=== PATIENT | female | born 1955 | race Caucasian/White ===

== ENCOUNTER 2023-10-27 01:19 | Day surgery (SDC) | payer MEDICARE, SELFPAY ==
[2023-10-01 13:06] VITALS: BMI 22.2
--- NOTE | 2023-10-25 12:08 | SUR.PREOP ---
Patient called regarding upcoming procedure. Reviewed preop instructions, appointment times, and procedure prep.
--- NOTE | 2023-10-26 16:26 | PM.HPGS ---
History of Present Illness History of Present Illness Consent: Risks, benefits, and alternatives have been discussed and questions answered. Patient agrees to proceed with procedure. Chief complaint: hx colon polyps Narrative: Jessica Phillips is a 67 year old female Was referred for colon cancer screening. She has had 3 previous colonoscopies with removal of polyps. Review of Systems Review of Systems: All systems reviewed & are unremarkable except as noted in HPI and below PMFSH Social History Social History Smoking status: Former smoker Smoking end date: 09/20/03 Alcohol intake: current Drinks per week: 1 Living arrangements: with family Spiritual care concerns: No Meds Home Medications and Allergies Home Medications Medication Instructions Recorded Confirmed Type Caltrate 600 plus D PO DAILY 10/01/23 History Prolia subcut 10/01/23 History cholecalciferol (vitamin D3) 50 PO DAILY 10/01/23 History mcg (2,000 unit) tablet (Vitamin D3) levothyroxine BID 10/01/23 History nlhpadht-jprd-[id number] 8 mg-folic 400 tablet PO 10/01/23 History mcg-K 50 mcg-lutein 300 mcg tablet (Centrum Silver Women) psyllium husk 3.4 gram/5.4 gram PO 10/01/23 History oral powder (Metamucil) simvastatin 20 mg tablet 20 mg PO DAILY 10/01/23 10/01/23 History Allergies Allergy/AdvReac Type Severity Reaction Status Date / Time codeine Allergy Unknown Dyspnea / Verified 10/27/23 09:18 SOB morphine Allergy Unknown Nausea and Verified 10/27/23 09:18 Vomiting Exam Resp: Auscultation: clear to auscultation bilaterally Cardio: Rate: regular rate Rhythm: regular rhythm GI: GI Palp: Yes Soft to palpation and No Tenderness to palpation present (GI) Assessment and Plan Assessment and plan (1) Colon cancer screening: Code(s): Z12.11 - Encounter for screening for malignant neoplasm of colon Status: Acute Assessment and Plan: Colonoscopy with possible biopsy or polypectomy or cautery or injection of substances.
[2023-10-27 09:18] VITALS: BP 119/35; PULSE 89; RESP 18; TEMP 36.8; O2SAT 100
[2023-10-27] MEDS: LACTATED RINGERS 1,000 ML 150 ML IV CONT (09:35)
--- NOTE | 2023-10-27 10:05 | P.PNAN_ITS ---
Anes - Initial Pre Proc Eval Procedure: Operation Date: 10/27/23 10:30 Proposed Procedures p Colonoscopy - Alexis Morales MD Date/Time: 10/27/23 10:05 Surgeon: Alexis Morales MD Pre Op Diagnosis: hx colon polyps Patient Data Age: 67 Gender: F Height: 1.5 m Weight: 48.8 kg Last Vital Signs Temp 98.3 F 10/27/23 09:18 Pulse 89 10/27/23 09:18 Resp 18 10/27/23 09:18 BP 119/35 L 10/27/23 09:18 Pulse Ox 100 10/27/23 09:18 O2 Del Method Room Air 10/27/23 09:18 Allergies Allergy/AdvReac Type Severity Reaction Status Date / Time codeine Allergy Unknown Dyspnea / Verified 10/27/23 09:18 SOB morphine Allergy Unknown Nausea and Verified 10/27/23 09:18 Vomiting Home Medications Medication Instructions Recorded Confirmed Type Caltrate 600 plus D PO DAILY 10/01/23 History Prolia subcut 10/01/23 History cholecalciferol (vitamin D3) 50 PO DAILY 10/01/23 History mcg (2,000 unit) tablet (Vitamin D3) levothyroxine BID 10/01/23 History jswzbmhk-mwrv-tlfh 8 mg-folic 400 tablet PO 10/01/23 History mcg-K 50 mcg-lutein 300 mcg tablet (Centrum Silver Women) psyllium husk 3.4 gram/5.4 gram PO 10/01/23 History oral powder (Metamucil) simvastatin 20 mg tablet 20 mg PO DAILY 10/01/23 10/01/23 History Patient hx anesthesia problems: none Family hx anesthesia problems: none Results Review: All pre-operative results and documents have been reviewed as part of the pre- operative evaluation. COUNT INCLUDES THE [facility] Social History Social History Smoking status: Former smoker Smoking end date: 09/20/03 Alcohol intake: current Drinks per week: 1 Living arrangements: with family Spiritual care concerns: No Anes - Eval Final PreProcedure Day of Procedure 10/27/23 10:05 Patient weight: normal Heart: regular rate and rhythm Lungs: clear to auscultation Airway: Mallampati scale Neurological: alert and oriented Last oral intake: >/= 8 hours Emergent: no Anesthetic plan: proceed Anesthesia type and monitoring: general GIVS and standard monitoring Results Review: All pre-operative results and documents have been reviewed as part of the pre- operative evaluation. Informed Consent: The patient's anesthetic plan and its attendant risks and benefits were discussed with the patient/family/POA. Questions were solicited and answers provided to the satisfaction of the patient/family/POA.
[2023-10-27 11:06] VITALS: BP 123/98; PULSE 82; RESP 18; O2SAT 99
[2023-10-27 11:16] VITALS: BP 107/39; PULSE 75; RESP 18; O2SAT 100
[2023-10-27 11:26] VITALS: BP 106/37; PULSE 72; RESP 18; O2SAT 100
== END 2023-10-27 11:35 | disposition home or self-care (01) ==
PROVIDERS: PCP Internal Medicine; Visit Provider Internal Medicine Gastroenterology
PROC: 0DJD8ZZ Inspection of Lower Intestinal Tract, Via Natural or Artificial Opening Endoscopic (ICD-10-PCS; CPT 45378; principal; 2023-10-27 10:30)
DX: Z12.11 Encounter for screening for malignant neoplasm of colon (principal); K62.1 Rectal polyp; K57.30 Diverticulosis of large intestine without perforation or abscess without bleeding; Z87.891 Personal history of nicotine dependence
CPT/HCPCS: 45380; 88305; J2704; J7120

== ENCOUNTER 2024-03-27 14:22 | Emergency (ER) | payer MEDICARE, SELFPAY ==
[2024-03-27 14:34] VITALS: BP 133/66; PULSE 66; RESP 16; TEMP 36.8; O2SAT 97
--- NOTE | 2024-03-27 15:01 | ED.EYEPROB ---
HPI - Eye Problem General Chief complaint: Eye Problems Stated complaint: right eye red,discharge Time Seen by Provider: 03/27/24 15:01 Source: patient Mode of arrival: ambulatory Limitations: no limitations History of Present Illness HPI Narrative: 68-year-old female presents with complaint 68-year-old female presents with complaint of redness, yellow drainage to right eye starting yesterday. Reports that symptoms are getting progressively worse. Right eye crusted shut this morning. No vision changes. all systems reviewed and negative except as noted above. Related Data Home Medications Medication Instructions Recorded Confirmed cholecalciferol (vitamin D3) 50 2,000 unit PO WEEKLY 10/01/23 03/27/24 mcg (2,000 unit) tablet (Vitamin D3) udtmyyrt-phns-hxvs 8 mg-folic 400 1 tablet PO DAILY 10/01/23 03/27/24 mcg-K 50 mcg-lutein 300 mcg tablet (Centrum Silver Women) simvastatin 20 mg tablet 20 mg PO DAILY 10/01/23 03/27/24 denosumab 60 mg/mL subcutaneous 60 mg subcut [id number] 03/27/24 03/27/24 syringe (Prolia) levothyroxine 75 mcg tablet 75 mcg PO DAILY 03/27/24 03/27/24 Allergies Allergy/AdvReac Type Severity Reaction Status Date / Time codeine Allergy Unknown Dyspnea / Verified 03/27/24 14:42 SOB morphine Allergy Unknown Nausea and Verified 03/27/24 14:42 Vomiting Review of Systems Review of Systems: CONSTITUTIONAL: Denies fever, chills, or sweats. EYES: Denies visual changes . Reports right eye redness, discharge. ENT: Denies rhinorrhea, congestion, sore throat, or otalgia. CARDIOVASCULAR: Denies chest pain, palpitations, or edema. RESPIRATORY: Denies cough or dyspnea. GASTROINTESTINAL: Denies abdominal pain, nausea, vomiting, or diarrhea. GENITOURINARY: Denies dysuria or hematuria. SKIN: Denies rash or itching. MUSCULOSKELETAL: Denies back pain, joint pain, or myalgia. NEUROLOGIC: Denies headache, numbness, or weakness. PSYCHIATRIC: Denies anxiety or depression. All other systems reviewed are negative, except as documented in HPI. [facility] Social History Social History Smoking status: Former smoker Smoking end date: 09/20/03 Alcohol intake: current Drinks per week: 1 Living arrangements: with family Spiritual care concerns: No Comments At time of signature, agree with nursing past medical, surgical, social and family history. There is no relevant family history pertinent to the presenting complaint. Exam Narrative: GENERAL: This is a well-nourished, well-developed patient, in no apparent distress. HEAD: normocephalic, atraumatic. EYES: PERRL. Sclera and conjunctiva right eye erythematous, yellow purulent drainage. Left eye sclera and conjunctiva clear/white. Vision is grossly intact. EARS: External ears normal NOSE: External nose normal NECK: Neck supple, non-tender without lymphadenopathy, masses or thyromegaly. CARDIOVASCULAR: Regular rate and rhythm without murmurs, gallops, or rubs. RESPIRATORY: Clear to auscultation. Breath sounds equal bilaterally. No wheezes, rales, or rhonchi. SKIN: warm, Dry, intact with no suspicious lesions or rash, good texture and turgor. NEURO: awake, alert, and oriented to person, place and time. There were no obvious focal neurologic abnormalities. EXTREMITIES: No joint tenderness, effusion, or edema noted. Course Course Level of Care: Express Care Visit Vital Signs Vital signs: Vital Signs Temperature 36.8 C 03/27/24 14:34 Pulse Rate 03/27/24 14:34 Respiratory Rate 03/27/24 14:34 Blood Pressure 133/66 03/27/24 14:34 Pulse Oximetry 97 03/27/24 14:34 Oxygen Delivery Room Air 03/27/24 14:34 Temperature 36.8 C 03/27/24 14:34 Pulse Rate 03/27/24 14:34 Respiratory Rate 03/27/24 14:34 Blood Pressure 133/66 03/27/24 14:34 Pulse Oximetry 97 03/27/24 14:34 Oxygen Delivery Room Air 03/27/24 14:34 rev
== END 2024-03-27 15:12 | disposition home or self-care (01) ==
PROVIDERS: Emergency Provider Nurse Practitioner Family; PCP Internal Medicine
DX: H10.31 Unspecified acute conjunctivitis, right eye (principal); Z87.891 Personal history of nicotine dependence; M81.0 Age-related osteoporosis without current pathological fracture; E04.9 Nontoxic goiter, unspecified
CPT/HCPCS: 99213; G0463

== ENCOUNTER 2024-06-17 14:54 | Emergency (ER) | payer MEDICARE, SELFPAY ==
--- NOTE | 2024-06-17 15:06 | ED.URI ---
HPI - URI/Sore Throat General Stated Complaint: ALMEIDA,COVID exposure Time Seen by Provider: 06/17/24 15:25 Source: patient Mode of arrival: ambulatory Limitations: no limitations History of Present Illness HPI Narrative: Jessica is a 60-year-old female patient presenting to the clinic today with complaints of headache and some nasal congestion that started this morning. She has had positive COVID exposure. She denies any chest pain, fever, shortness breath, chills, body aches, or sore throat. Related Data Home Medications Medication Instructions Recorded Confirmed cholecalciferol (vitamin D3) 50 2,000 unit PO WEEKLY 10/01/23 03/27/24 mcg (2,000 unit) tablet (Vitamin D3) [id number]-nwnx-[id number] 8 mg-folic 400 1 tablet PO DAILY 10/01/23 03/27/24 mcg-K 50 mcg-lutein 300 mcg tablet (Centrum Silver Women) simvastatin 20 mg tablet 20 mg PO DAILY 10/01/23 03/27/24 denosumab 60 mg/mL subcutaneous 60 mg subcut [id number] 03/27/24 03/27/24 syringe (Prolia) levothyroxine 75 mcg tablet 75 mcg PO DAILY 03/27/24 03/27/24 Allergies Allergy/AdvReac Type Severity Reaction Status Date / Time codeine Allergy Unknown Dyspnea / Verified 03/27/24 14:42 SOB morphine Allergy Unknown Nausea and Verified 03/27/24 14:42 Vomiting Review of Systems Review of Systems: Pertinent positives per HPI. Patient denies any fever, chills, rash, visual changes, dizziness, cough, sore throat, shortness of breath, chest pain, palpitations, nausea, vomiting, diarrhea, constipation, abdominal pain, or any urinary issues. PMFSH Social History Social History Smoking status: Former smoker Smoking end date: 09/20/03 Alcohol intake: current Drinks per week: 1 Living arrangements: with family Spiritual care concerns: No Comments At the time of my signature, I reviewed and agree with the nursing past medical, surgical, social, and family history. There is no relevant family history pertinent to the patient complaint. Exam Narrative: General: Well-developed, well nourished, in no apparent distress Head: Normocephalic, atraumatic Eyes: Pupils equally round and reactive to light bilaterally, EOM intact, sclera and conjunctive clear, no discharge, lids normal Ears: TMs intact and clear, ear canals clear, no drainage, grossly hearing normal. Nose: Nares patent, no discharge, no inflammation, no sinus tenderness. Mouth: Oropharynx without lesions or masses, good dentition, MMM. Neck: Supple, trachea midline, no enlargement of anterior or posterior cervical nodes, no thyroid masses or goiter palpable. Cardio: Regular rate and rhythm, s1 and s2 normal, no murmur appreciated. Resp: Clear to auscultation bilaterally anteriorly and posteriorly, no rhonchi, rales, wheezing or rubs Course Course Emergency Course: Portions of this record may have been created with voice recognition software. Level of Care: Express Care Visit Vital Signs Vital signs: Vital signs reviewed MDM - URI/Sore Throat MDM Narrative Medical decision making narrative: At the time of visit patient is resting comfortably on the exam table. Patient appears to be nontoxic. Labs: COVID testing was positive in the clinic today Plan: I suspect patient has COVID-19. Supportive measures were discussed with the patient and they voiced understanding discharge instructions and agrees to treatment plan. Return precautions reviewed Differential Diagnosis Differential diagnosis: Likely upper respiratory infection, otitis media, sinusitis, viral infection, bronchitis, influenza, pharyngitis and other (COVID) Discharge Plan Discharge Clinical Impression: COVID-19 Patient Disposition: Home, Self-Care Condition: Stable Instructions: Antibiotic Form, How to Recover from COVID-19 at Home (ED) Additional Instructions: COVID testing was positive in the clinic today May take DayQuil/NyQuil fo
[2024-06-17 15:25] VITALS: BP 133/60; PULSE 80; RESP 18; TEMP 36.8; O2SAT 100
[2024-06-19 14:28] LABS: EDCOVIDSCREEN Positive (Negative)
== END 2024-06-17 15:45 | disposition home or self-care (01) ==
PROVIDERS: Emergency Provider Nurse Practitioner Family; PCP Internal Medicine
DX: U07.1 COVID-19 (principal); Z87.891 Personal history of nicotine dependence; M81.0 Age-related osteoporosis without current pathological fracture
CPT/HCPCS: 87426; 99212; G0463

== ENCOUNTER 2024-07-24 07:08 | Outpatient (CLI) | payer MEDICARE, SELFPAY ==
--- NOTE | ~2024-07-24 | US_ITS ---
EXAM: ABDOMEN ULTRASOUND HISTORY: LEUKOPENIA UNSPECIFIED TYPE COMPARISON: Reference is made to a CT examination of the abdomen and pelvis dated 10/04/2023 FINDINGS: LIVER: Indeterminate focus of decreased echogenicity within segment 2 of the liver measuring 18 x 16 x 23 mm. Peripheral vascularity is present. This focus corresponds to the CT examination performed in 2013, likely a hemangioma. Within the right lobe of the liver is a well-circumscribed, anechoic, avascular focus with increased through transmission measuring 9.5 x 7.7 x 10.5 mm, representing a simple cyst. The main portal vein is patent demonstrating hepatopedal flow GALLBLADDER: No stones are identified within the gallbladder. No gallbladder wall thickening or pericholecystic fluid. BILE DUCTS: Common bile duct measures 4.6mm. PANCREAS: Limited evaluation of the pancreas secondary to overlying bowel gas SPLEEN: The spleen is unremarkable in echogenicity and size measuring 9cm in longitudinal dimension. RIGHT KIDNEY: 10.3 cm. In length. No hydronephrosis or bulky renal calculi. LEFT KIDNEY: 10.9cm in length. No hydronephrosis or renal calculi. VASCULATURE : The abdominal aorta is nonaneurysmal. The IVC is patent. IMPRESSION: Findings within segment 2 of the liver, likely a hemangioma, for which contrast enhanced MRI (with li rukhsana mass protocol) may be performed for confirmation. Simple cyst within the right lobe of the liver, for which no further follow-up is needed. Evaluation of the pancreas is limited by overlying bowel gas. Otherwise, unremarkable sonographic evaluation of the abdomen, as detailed above. Reviewed, dictated and finalized at location A. [facility] ADMINISTRATOR IMPRESSION: Findings within segment 2 of the liver, likely a hemangioma, for which contrast enhanced MRI (with liver mass protocol) may be performed for confirmation. Simple cyst within the right lobe of the liver, for which no further follow-up is needed. Evaluation of the pancreas is limited by overlying bowel gas. Otherwise, unremarkable sonographic evaluation of the abdomen, as detailed abojuanita e.
== END 2024-07-24 07:09 | disposition home or self-care (01) ==
LOC: ANHIMG 07:16
PROVIDERS: PCP Internal Medicine; Visit Provider Internal Medicine Hematology & Oncology
DX: D72.819 Decreased white blood cell count, unspecified (principal); K76.89 Other specified diseases of liver
CPT/HCPCS: 76700

== ENCOUNTER 2024-07-28 08:26 | Outpatient (CLI) | payer MEDICARE, SELFPAY ==
[2024-07-28 08:49] LABS: Basophils Percent Auto 1.1 % (0.2-1.2); Eosinophils Absolute Auto 0.2 K/mm3 (0-0.3); Hematocrit 37.8 % (37.0-47.0); Hemoglobin 12.7 g/dL (12.0-15.0); Immature Granulocyte Absolute 0.01 K/mm3 (0.00-0.031); Immature Granulocyte Percent A 0.3 % (0-0.5); Lymphocytes Absolute Auto 1.59 K/mm3 (0.9-3.2); Lymphocytes Percent Auto 42.3 % (18.3-44.2); Mean Corpuscular HGB Conc 33.6 g/dl (32-36); Mean Corpuscular Hemoglobin 29.5 pg (26-34); Mean Corpuscular Volume 87.7 fl (80-100); Mean Platelet Volume 9.3 fl (7.4-10.4); Monocytes Absolute Auto 0.3 K/mm3 (0.1-0.6); Neutrophils Absolute Auto 1.6 K/mm3 (1.3-6.7); Neutrophils Percent Auto 43.3 % (45.5-73.1); Platelet Count Result 321 k/mm3 (150-375); Red Blood Count 4.31 M/mm3 (4.2-5.4); Red Cell Distribution Width 13.4 % (11.5-14.5); White Blood Count 3.8 K/mm3 (4.5-10.0)
[2024-07-28 12:59] LABS: Iron 91 ug/dL (37-170)
[2024-07-28 13:09] LABS: Percent Iron Saturation 29 % (20-50)
[2024-07-28 13:55] LABS: Alanine Aminotransferase 20 U/L (6-35); Albumin Level 4.6 g/dL (3.5-5.1); Alkaline Phosphatase 41 U/L (38-126); Anion Gap 6 mmol/L (4-12); Aspartate Amino Transferase 28 U/L (14-36); Bilirubin,Total 0.4 mg/dL (0.2-1.3); Blood Urea Nitrogen 13 mg/dL (7-17); Calcium 9.4 mg/dL (8.4-10.2); Carbon Dioxide 30 mmol/L (22-30); Chloride 100 mmol/L (98-107); Estimated Glomerular Filt Rate > 60; Glucose 94 mg/dL (65-110); Potassium 4.7 mmol/L (3.4-5.0); Sodium 136 mmol/L (137-145)
[2024-07-28 15:29] LABS: Folic Acid > 20.0 ng/mL (2.76->20)
[2024-08-01 15:18] LABS: Methylmalonic Acid 147 nmol/L (69-390)
== END 2024-07-28 08:27 | disposition home or self-care (01) ==
LOC: ANHLAB 08:31
PROVIDERS: PCP Internal Medicine; Visit Provider Internal Medicine Hematology & Oncology
DX: D64.9 Anemia, unspecified (principal); D72.819 Decreased white blood cell count, unspecified
CPT/HCPCS: 36415; 80053; 82607; 82728; 82746; 83540; 83550; 83921; 84238; 85025; 86038; 86039

== ENCOUNTER 2024-11-24 08:32 | Outpatient (CLI) | payer MEDICARE, SELFPAY ==
[2024-11-24 08:45] LABS: Basophils Absolute Auto 0.1 K/mm3 (0.0-0.1); Basophils Percent Auto 1.6 % (0.2-1.2); Eosinophils Absolute Auto 0.1 K/mm3 (0-0.3); Eosinophils Percent Auto 3.4 % (0-4.4); Hematocrit 38.8 % (37.0-47.0); Hemoglobin 13.2 g/dL (12.0-15.0); Immature Granulocyte Absolute 0.01 K/mm3 (0.00-0.031); Immature Granulocyte Percent A 0.3 % (0-0.5); Lymphocytes Absolute Auto 1.73 K/mm3 (0.9-3.2); Lymphocytes Percent Auto 45.1 % (18.3-44.2); Mean Corpuscular Hemoglobin 29.4 pg (26-34); Mean Corpuscular Volume 86.4 fl (80-100); Mean Platelet Volume 9.5 fl (7.4-10.4); Monocytes Absolute Auto 0.3 K/mm3 (0.1-0.6); Monocytes Percent Auto 8.9 % (2.6-8.5); Neutrophils Absolute Auto 1.6 K/mm3 (1.3-6.7); Neutrophils Percent Auto 40.7 % (45.5-73.1); Platelet Count Result 318 k/mm3 (150-375); Red Blood Count 4.49 M/mm3 (4.2-5.4); White Blood Count 3.8 K/mm3 (4.5-10.0)
--- OUTSIDE RECORDS SUMMARY | 2024-11-24 08:46 | XMS_ITS | Clinical Summary ---
Author Organization [facility] Address [address] [place] [address] Phone Care Team Providers Care Compugraph Operator Name Role Phone Fam Ryan MD Primary Care Provider Active Problems Problem Noted Date Diagnosed Date Age related osteoporosis 03/29/2024 Social History Tobacco Use Types Packs/Day Years Used Date Smoking Tobacco: Never Assessed Comments Unknown Sex and Gender Information Value Date Recorded Sex Assigned at Not on file Legal Sex Female 1:26 PM [employer]IXING [employer] O[employer] Gender Identity Not on file Sexual Orientation Not on file Last Filed Vital Signs Vital Sign Reading Time Taken Comments Blood Pressure 147/70 03/29/2024 10:53 AM CDT Pulse 63 03/29/2024 10:53 AM CDT Temperature 36.3 C (97.3 F) 03/29/2024 10:53 AM CDT Respiratory Rate 18 03/29/2024 10:53 AM CDT Oxygen Saturation - - Inhaled Oxygen Concentration - - Weight - - Height - - Body Mass Index - - Plan of Treatment Health Maintenance Due Date Last Done Comments DEXA Bone Density 1955 Hepatitis C Virus (HCV) Screening 1955 Mammogram 1955 TdaP Immunization 1955 Colonoscopy 12/03/2000 Colorectal Cancer Screening 12/03/2000 Cologuard 12/03/2005 Immunochemical Fecal Occult Blood 12/03/2005 Zoster Immunization (2 of 3) 08/13/2017 06/18/2017, 06/17/2017 Pneumococcal Immunization (50+ years) (2 of 2 - PPSV23) 09/07/2018 09/07/2017, 09/06/2017 Influenza Immunization (#1) 05/21/20240 02/2021, 06/04/2020, 06/08/2019, Additional history exists SARS-COV-2 Immunization ( season) 2024 06/27/2021, 12/24/2020, 12/03/2020 Respiratory Syncytial Virus (RSV) Immunization (Adult) (1 - 1-dose 75+ series) 12/03/2030 Hepatitis B Immunization Aged Out No longer eligible based on patient's age to complete this topic Meningococcal Immunization (ACWY) Aged Out No longer eligible based on patient's age to complete this topic Rotavirus Immunization Aged Out No lo nger eligible based on patient's age to complete this topic Insurance MEDICARE [facility] Care Teams Compugraph Operator Relationship Specialty Start Date End Date Fam Ryan MD [address] [place] [address] PCP - General Internal Medicine 09/22/23
--- OUTSIDE RECORDS SUMMARY | 2024-11-24 08:46 | XMS_ITS | Data Portability ---
Author Organization [place] - [facility] [employer], op5, [facility] Wis.dm [facility] Address [address] [place] [address] Care Team Providers Care Principal Technical Writer Name Role Phone ANDREW PEREZ Primary Care Provider ANDREW PEREZ Referring Provider Assessment Encounter Date Assessment Date Assessment LastModified by Organization Details LastModified Time 08/19/2023 08/19/2023 (1) Annual Wellness Visit done today. Immunizations are up to date. [place] to [place]. [email or web address] Not available 08/19/2023 14:46:52 Plan of Treatment Reminders Order Date Submit Date Provider Last Modified By Organization Details Last Modified Time Details Appointments None recorded. Lab None recorded. Referral None recorded. Procedures None recorded. Surgeries None recorded. Imaging None recorded. Medication Orders Evenity 210 mg/2.34 mL (105 mg/1.17 mL x 2) subcutaneou s syringe 2022 023 [employer] #[id number], [address] [place], [place], [id number], 3 09:15:14 Evenity 210 mg/2.34 mL (105 mg/1.17 mL x 2) subcutaneou s syringe 2022 023 [employer] #[id number], [address] [place], [place], [id number], 3 09:21:39 Evenity 210 mg/2.34 mL (105 mg/1.17 mL x 2) subcutaneou s syringe 2022 023 jose manuel [facility] #[id number], [address], [place], [id number], 09:03:44 Evenity 210 mg/2.34 mL (105 mg/1.17 mL x 2) subcutaneou s syringe 2022 023 jose manuel Not available 07:54:47 Patient TargetsNo targets recorded. Patient InstructionsNo instructions recorded. Reason for Referral None Reported. Results Created Date Observation Date Name Description Value Unit Range Abnormal Flag Note LastModifiedBy Organization Detail LastModifiedTime 07/22/2007/22/2023 CBC W/ AUTOD IFF, COMPL ETE BLOOD COUNT WBC 4.2 K/uL 3.6 - 10.0 Not Available [facility] [address] [place], [address], 07/22/2023 15:34:28 07/22/20 23 07/22/2023 CBC W/ AUTOD IFF, COMPL ETE BLOOD COUNT RBC 4.2 M/uL 3.9 - 5.0 Not Available [facility] [address] [place], [address], 07/22/2023 15:34:28 07/22/20 23 07/22/2023 CBC W/ AUTOD IFF, COMPL ETE BLOOD COUNT hemoglobin 12.1 g/dL 12.0 - 15.0 Not Available [facility] [address] [place], [address], 07/22/2023 15:34:28 07/22/20 23 07/22/2023 CBC W/ AUTOD IFF, COMPL ETE BLOOD COUNT hematocrit 35.8 % 35.0 - 45.0 Not Available [facility] [address] [place], [address], 07/22/2023 15:34:28 07/22/20 23 07/22/2023 CBC W/ AUTOD IFF, COMPL ETE BLOOD COUNT MCV 84.7 fL 80.0 - 99.0 Not Available [facility], [place], [address], 07/22/2023 15:34:28 07/22/20 23 07/22/2023 CBC W/ AUTOD IFF, COMPL ETE BLOOD COUNT MCH 28.5 pg 27.0 - 33.0 Not Available [facility], [place], [address], 07/22/2023 15:34:28 07/22/20 23 07/22/2023 CBC W/ AUTOD IFF, COMPL ETE BLOOD COUNT MCHC 33.7 g/dL 32.0 - 36.0 Not Available [facility] [address] [place] [address] [address], [place], [address], 07/22/2023 15:34:28 07/22/20 23 07/22/2023 CBC W/ AUTOD IFF, COMPL ETE BLOOD COUNT RDW 13.7 % 11.0 - 15.0 Not Available [facility] [address] [place] [address] [address], [place], [address], 07/22/2023 15:34:28 07/22/20 23 07/22/2023 CBC W/ AUTOD IFF, COMPL ETE BLOOD COUNT nucleated RBC 0 % 0 - 2 Not Available [facility], [place], [address], 07/22/2023 15:34:28 07/22/20 23 07/22/2023 CBC W/ AUTOD IFF, COMPL ETE BLOOD COUNT platelet 314 K/uL 140 - 440 Not Available [facility] [address], [place], [address], 07/22/2023 15:34:28 07/22/20 23 07/22/2023 CBC W/ AUTOD IFF, COMPL ETE BLOOD COUNT MPV 8.4 fL 7.4 - 10.4 Not Available [facility] [address] [place], [place] [address], [place], [address], 07/22/2023 15:34:28 07/22/20 23 07/22/2023 CBC W/ AUTOD IFF, COMPL ETE BLOOD COUNT neutrophil, percentage 43.9 % Not Available [facility] [address] [place], [place] [address], [place], [address], 07/22/2023 15:34:28 07/22/20 23 07/22/2023 CBC W/ AUTOD IFF, COMPL ETE BLOOD COUNT lymphocyte, percentage 41.8 % Not Available [facility] [address] [place], [place] [address], [place], [address], 07/22/2023 15:34:28 07/22/20 23 07/22/2023 CBC W/ AUTOD IFF, COMPL ETE BLOOD COUNT monocyte, percentage 10.0 % Not Available [facility] [address] [place] [address] [address] [place], [address], 07/22/2023 15:34:28 07/22/20 23 07/22/2023 CBC W/ AUTOD IFF, COMPL ETE BLOOD COUNT eosinophil, percentage 3.1 % Not Available [facility] [address] [place], [place] [address], [place], [address], 07/22/2023 15:34:28 07/22/20 23 07/22/2023 CBC W/ AUTOD IFF, COMPL ETE BLOOD COUNT basophil, percentage 1.2 % Not Available [facility] [address] [place], [place] [address], [place], [address], 07/22/2023 15:34:28 07/22/20 23 07/22/2023 CBC W/ AUTOD IFF, COMPL ETE BLOOD COUNT neutrophil, absolute 1.8 K/uL 1.5 - 7.5 Not Available [facility] [address], [place], [address], 07/22/2023 15:34:28 07/22/20 23 07/22/2023 CBC W/ AUTOD IFF, COMPL ETE BLOOD COUNT lymphocyte, absolute 1.7 K/uL 0.8 - 4.0 Not Available [facility] [address], [place], [address], 07/22/2023 15:34:28 07/22/20 23 07/22/2023 CBC W/ AUTOD IFF, COMPL ETE BLOOD COUNT monocyte, absolute 0.4 K/uL 0.1 - 1.0 Not Available [facility] [address] [place], [place] [address], [place], [address], 07/22/2023 15:34:28 07/22/20 23 07/22/2023 CBC W/ AUTOD IFF, COMPL ETE BLOOD COUNT eosinophil, absolute 0.1 K/uL 0.1 - 1.0 Not Available [facility] [address] [place] [address] [address], [place], [address], 07/22/2023 15:34:28 07/22/20 23 07/22/2023 CBC W/ AUTOD IFF, COMPL ETE BLOOD COUNT basophil, absolute 0.1 K/uL 0.0 - 0.2 Not Available [facility] [address] [facility] [address], [place], [address], 07/22/2023 15:34:28 07/22/20 23 07/22/2023 CMP, COMPR EHENS OLIVER METAB OLIC PANEL glucose 83 mg/dL 70 - 100 Not Available [facility] [address], [place], [address], 07/22/2023 15:44:53 07/22/20 23 07/22/2023 CMP, COMPR EHENS OLIVER METAB OLIC PANEL BUN 13 mg/dL 7 - 25 Not Available [facility] [address], [place], [address], 07/22/2023 15:44:53 07/22/20 23 07/22/2023 CMP, COMPR EHENS OLIVER METAB OLIC PANEL creatinine 0.8 mg/dL 0.6 - 1.3 Not Available [facility] [address], [place], [address], 07/22/2023 15:44:53 07/22/20 23 07/22/2023 CMP, COMPR EHENS OLIVER METAB OLIC PANEL BUN/creatini ne ratio 16 calc 10 - 25 Not Available [facility] [address] [facility] [address], [place], [address], 07/22/2023 15:44:53 07/22/20 23 07/22/2023 CMP, COMPR EHENS OLIVER METAB OLIC PANEL GFR 78 mL/mi n/1.7 3m^2 >60 GFR < 60 mL/mi n for 3 or more month s may be indic ative of Isabel Rincon se. The GFR is based on the CKD-E PI 2020 equat ion. To calcu late the new GFR from a previ ous Creat inine resul t go to: https ://dottie nunez.juan boyd.shahnaz ford/pr florentino hoang s/kdo qi/gf r&5Fc alcul ator. Not Available [facility] [address], [place], [address], 07/22/2023 15:44:53 07/22/20 23 07/22/2023 CMP, COMPR EHENS OLIVER METAB OLIC PANEL sodium 135 mmol/ L 135 - 145 Not Available [facility] [address] [facility] [address], [place], [address], 07/22/2023 15:44:53 07/22/20 23 07/22/2023 CMP, COMPR EHENS OLIVER METAB OLIC PANEL potassium 4.2 mmol/ L 3.5 - 5.5 Not Available [facility] [address] [facility] [address], [place], [address], 07/22/2023 15:44:53 07/22/20 23 07/22/2023 CMP, COMPR EHENS OLIVER METAB OLIC PANEL chloride 97 mmol/ L 100 - 115 low Not Available [facility] [address] [facility] [address], [place], [address], 07/22/2023 15:44:53 07/22/20 23 07/22/2023 CMP, COMPR EHENS OLIVER METAB OLIC PANEL CO2 30 mmol/ L 21 - 33 Not Available [facility] [address] [facility] [address], [place], [address], 07/22/2023 15:44:53 07/22/20 23 07/22/2023 CMP, COMPR EHENS OLIVER METAB OLIC PANEL anion gap 8 calc 3 - 11 Not Available [facility] [address] [facility] [address], [place], [address], 07/22/2023 15:44:53 07/22/20 23 07/22/2023 CMP, COMPR EHENS OLIVER METAB OLIC PANEL calcium 9.2 mg/dL 8.8 - 10.6 Not Available [facility] [address] [facility] [address], [place], [address], 07/22/2023 15:44:53 07/22/20 23 07/22/2023 CMP, COMPR EHENS OLIVER METAB OLIC PANEL total protein 6.8 g/dL 6.2 - 8.6 Not Available [facility] [address], [place], [address], 07/22/2023 15:44:53 07/22/20 23 07/22/2023 CMP, COMPR EHENS OLIVER METAB OLIC PANEL globulin 2.5 g/dL 1.3 - 4.0 Not Available [facility] [address] [place], [place] [address]y [address], [place], [address], 07/22/2023 15:44:53 07/22/20 23 07/22/2023 CMP, COMPR EHENS OLIVER METAB OLIC PANEL albumin 4.3 g/dL 3.5 - 5.7 Not Available [facility] [address] [place], [place] [address]y [address], [place], [address], 07/22/2023 15:44:53 07/22/20 23 07/22/2023 CMP, COMPR EHENS OLIVER METAB OLIC PANEL A/G ratio 1.7 calc 1.0 - 2.8 Not Available [facility] [address] [place] [address] [address], [place], [address], 07/22/2023 15:44:53 07/22/20 23 07/22/2023 CMP, COMPR EHENS OLIVER METAB OLIC PANEL AST (SGOT) 17 U/L 13 - 39 Not Available [facility] [address] [place] [address] [address], [place], [address], 07/22/2023 15:44:53 07/22/20 23 07/22/2023 CMP, COMPR EHENS OLIVER METAB OLIC PANEL ALT (SGPT) 16 U/L 7 - 52 Not Available [facility] [address] [place], [place] [address], [place], [address], 07/22/2023 15:44:53 07/22/20 23 07/22/2023 CMP, COMPR EHENS OLIVER METAB OLIC PANEL alkaline phosphatase 72 U/L 20 - 128 Not Available [facility] [address] [facility] [address] [place], [address], 07/22/2023 15:44:53 07/22/20 23 07/22/2023 CMP, COMPR EHENS OLIVER METAB OLIC PANEL total bilirubin 0.5 mg/dL 0.3 - 1.0 Not Available [facility] [address] [facility] [address] [place], [address], 07/22/2023 15:44:53 07/22/20 23 07/22/2023 LIPID PANEL W/ CALCU LATED LDL HDL cholestrol 61 mg/dL >50 Not Available [facility] [address] [facility] [address] [place], [address], 07/22/2023 15:44:56 07/22/20 23 07/22/2023 LIPID PANEL W/ CALCU LATED LDL cholesterol 162 mg/dL <200 Expec pinky resul ts for Adult s: Total Shanti stero l: Risk class ifica tion < 200 mg/dL Emory able 200-2 39 mg/dL Borde rline high >240 mg/dL High Not Available [facility] [address] [facility] [address] [place], [address], 07/22/2023 15:44:56 07/22/20 23 07/22/2023 LIPID PANEL W/ CALCU LATED LDL triglyceride 69 mg/dL 30 - 150 Not Available [facility] [address] [facility] [address] [place], [address], 07/22/2023 15:44:56 07/22/20 23 07/22/2023 LIPID PANEL W/ CALCU LATED LDL non-HDL cholesterol 101 mg/dL <130 Emory able < 130 mg/dL Not Available [facility] [address] [facility] [address] [place], [address], 07/22/2023 15:44:56 07/22/20 23 07/22/2023 LIPID PANEL W/ CALCU LATED LDL chol/HDL risk ratio 3 calc < 5.0 Optim al Not Available [facility] [address] [facility] [address], [place], [address], 07/22/2023 15:44:56 07/22/20 23 07/22/2023 LIPID PANEL W/ CALCU LATED LDL LDL calculated 87 mg/dL 0 - 99 Not Available [facility] [address] [facility] [address], [place], [address], 07/22/2023 15:44:56 07/22/20 23 07/22/2023 TSH+F REE T4 free T4 1.400 NG/dL 0.930 - 1.770 Not Available [facility] [address] [place] [address] [address] [place], [address], 07/22/2023 16:13:04 07/22/20 23 07/22/2023 TSH+F REE T4 TSH 0.4760 uIU/m L 0.2700 - 4.2000 Not Available [facility] [address] [facility] [address] [place], [address], 07/22/2023 16:13:04 07/22/20 23 07/22/2023 VITAM IN D, 25-HY DROXY vitamin D, 25 hydroxy 83.60 NG/mL >=30.0 0 The [place] sIabel y Found ation consi ders level s < 30 ng/mL to be insuf ficie nt or defic ient. Not Available [facility] [address] [facility] [address], [place], [address], 07/22/2023 16:13:06 07/22/20 23 07/22/2023 VENIP UNCTU RE results Compl ete Not Available [facility] [address] [facility] [address] [place], [address], 07/22/2023 09:17:47 Result Notes None recorded. Problems Name Problem SNOMED Code Status Onset Date Resolution Date Notes Provider Name and Address Organization Details Recorded Time Hypothyroidism 14617817 Active [facility] [place] 3 14:48:02 Hyperlipidemia 69290879 Active Katie Renteria [facility], [facility] 3 14:48:04 Osteoporosis 02624420 Active Katie Renteria [facility], [facility] 14:48:00 Problem Notes None recorded. Procedures Surgical History Date Name Laterality Status Provider Name and Address Organization Details Recorded Time 08/19/20 Quality Functional Assessment completed [facility] 08/17/2023 16:38:44 08/19/20 23 Quality Medication Reviewed and Updated completed [facility] 08/17/2023 16:38:44 08/19/20 23 Quality BMI with follow up completed [facility] 08/17/2023 16:38:45 08/19/20 23 Quality Advanced Care Planning completed [facility] 08/17/2023 16:38:45 08/19/20 23 Quality Incontinence Screening completed [facility] 08/17/2023 16:38:45 08/19/20 23 Medicare AWV - Screening Schedule completed Karyna Chisholm [facility] 08/19/2023 14:46:18 08/19/20 23 Quality Fall Risk Assessment completed [facility] 08/17/2023 16:38:45 04/19/20 23 bone density scan completed December Hardy [facility] 05/06/2023 17:05:31 10/29/19 23 mammography completed Andrew Perez MD [address], [address], [facility] 11/02/2022 09:43:50 10/21/19 23 Date of Last Mammogram completed [facility] 11/24/2022 14:16:00 12/02/19 22 Date of Last Pap Smear completed [facility] 11/24/2022 14:17:05 12/02/19 22 screening for malignant neoplasm of cervix completed [facility] 11/24/2022 14:16:56 03/19/20 21 bone density scan completed [facility] 11/24/2022 14:16:34 11/29/19 19 Colonoscopy completed [facility] 11/24/2022 14:15:54 07/02/20 14 Hernia Repair completed Not Available [facility] 2021 21:09:09 09/20/19 14 small intestine excision completed [facility] 11/24/2022 14:20:36 09/20/19 10 Unlisted px dentalvlr strux completed Not Available [facility] 07/13/2022 21:09:09 09/20/18 81 Appendectomy completed Not Available [facility] 022 21:09:09 Unlisted px meckel's [email or web address] completed Not Available [facility] 07/13/2022 21:09:09 Imaging Results None recorded. Procedure Notes None recorded. Medical Equipment None Reported. Allergies Allergen ID Allergen Name Allergen Category Reaction Reaction Severity Criticality Documentation Date Start Date Code Code System Note Provider Name and Address Organization Details Recorded Time 3012283 morphine medicatio n vomiting Not available Not available 07/13/2022 7052 RxNorm Not Available [facility] 21:17:35 [id number] codeine medicatio n vomiting Not available Not available 07/13/2022 2670 RxNorm Not Available [facility] 21:17:36 Medications Name Sig Start Date Stop Date Status Note LastModified by Organization Details LastModified Time alendrona te 70 mg tablet TAKE 1 TABLET BY MOUTH ONCE A WEEK WITH A FULL GLASS OF WATER AND STAY UPRIGHT FOR 30 MINUTES 08/19 completed Not Available Not Available Not Available levothyro xine 75 mcg tablet TAKE 1 TABLET BY MOUTH EVERY DAY active Not Available Not Available No t Available simvastat in 20 mg tablet TAKE 1 TABLET BY MOUTH EVERY DAY active Not Available Not Available No t Available Multivita min 50 Plus tablet Take by oral route. 2021 active Not Available Not Available Not Avai lable Vitamin D3 125 mcg (5,000 unit) tablet Take by oral route. 2021 active Not Available Not Available Not Avai lable Caltrate 600 plus D 1200 mg daily 2021 active Not Available Not Available Not Avai lable Centrum Silver 0.4 mg-300 mcg-250 mcg tablet Take by oral route. 08/19 completed Not Available Not Available Not Available Evenity 210 mg/2.34 mL (105 mg/1.17 mL x 2) subcutane ous syringe INJECT 210 MG 2 CONSECUT OLIVER 105 MG INJECTIO NS BY SUBCUTAN EOUS ROUTE ONCE A MONTH AT 2 INJECTIO N SITES IN ABDOMEN, THIGH OR UPPER ARM 2022 active Office supplied rx Not Available Not Available Not Available Vitals Date Recorded Body height Pain severity - 0-10 verbal numeric rating [Score] - Reported Body mass index (BMI) Body weight Body temperature Heart rate Respiratory rate Oxygen saturation Oxygen saturation in Arterial blood by Pulse oximetry Provider Name and Address Organization Details Last Updated DateTime 3 149.86 cm 0 22 kg/m2 83750.5 7 g 98.1 [degF] 75 /min 16 /min 98 % 98 % [facility] 3 13:45:05 Date Recorded Systolic blood pressure Diastolic blood pressure Provider Name and Address Organization Details Last Updated DateTime 08/19/2023 112 mm[Hg] 68 mm[Hg] Andrew Perez MD [address], [place], [address], [place] [facility], [facility] 08/19/2023 14:24:36 Social History Question Answer Notes LastModified by Organizat ion Details LastModified Time Tobacco Smoking Status Former Smoker Alysa cuadra [facility], [facility] 11/24/2022 14:11:30 What Is Your Level Of Alcohol Consumption? Occasional Information not available 11/24/2022 How Many Times Per Week Do You Consume Alcohol? Less Than 1 Time Per Week [email or web address] Information not available 11/24/2022 Are You Currently Employed? No [email or web address] Information not available 11/24/2022 What Type Of Diet Are You Following? REGULAR [email or web address] Information not available 11/24/2022 When Did You Quit Smoking? 11-15yearssinc elastcigarette Information not available 11/24/2022 Alcohol Use 1-2 Per Month [email or web address] Informatio n not available 11/24/2022 Do You Smoke? No [email or web address] Information not available 11/24/2022 What Was The Date Of Your Most Recent Tobacco Screening? 08/19/2023 [email or web address] Information not available 08/19/2023 Have You Ever Been Counseled For Unhealthy Alcohol Use? No Information not available 11/24/2022 What Is Your Relationship Status? [email or web address] Information not available 11/24/2022 Do You Use Your Seat Belt Or Car Seat Routinely? Yes Information not available 11/24/2022 Has Tobacco Cessation Counseling Been Provided? No [email or web address] Information not available 11/24/2022 How Many Years Have You Smoked Tobacco? 20 1 PPD Information not available 11/24/2022 Do You Have Any Dietary Restrictions? No Information not available 11/24/2022 Do You Or Have You Ever Used Any Other Forms Of Tobacco Or Nicotine? No Information not available 11/24/2022 Sex: Female Functional Status Question Answer Note LastModified by Organizat ion Details LastModified Time Do you have transportation difficulties? No Information not available 11/24/2022 Are you able to care for yourself? Yes [email or web address] Information not available 11/24/2022 Mental Status None recorded. Family History Relationship Description Onset Age of this Age Resolved Age Notes LastModified by Organization Details LastModified Time Mother Family history of malignant neoplasm [email or web address] Not available 2022 13:29:33 Mother Malignant tumor of lung [email or web address] Not available 2022 13:29:33 Mother Heart disease [email or web address] Not available 21:10:34 Paternal Grandmother Renal failure syndrome [email or web address] Not available 2022 13:29:33 Father Malignant tumor of lung [email or web address] Not available 2022 13:29:33 Medical History Condition Response Thyroid Disease Y High Cholesterol Y Osteopenia/Osteoporosis Y Gynecological History Statement/Question Response Date of Last Pap Smear 12/01/2021 Current Control Method Menopause Date of Last Mammogram 10/21/2022 Obstetrics History GPAL:G 0 P 0 0 0 0 Immunizations Vaccine Type Date Status Note Provider Nam e and Address Organization Details Recorded Time pneumococcal polysaccharide PPV23 2 [facility] [place] 11/24/2022 14:09:35 Influenza, split virus, quadrivalent, preservative 1 completed Not Available [facility] 08/24/2023 04:03:58 COVID-19, mRNA, LNP-S, PF, 30 mcg/0.3 mL dose 1 completed Not Available [facility] 08/24/2023 04:03:58 COVID-19, mRNA, LNP-S, PF, 30 mcg/0.3 mL dose 1 completed Not Available [facility] 08/24/2023 04:03:58 Influenza, high-dose, quadrivalent, PF 2 completed [facility] [place] 11/24/2022 14:09:34 COVID-19, mRNA, LNP-S, PF, 30 mcg/0.3 mL dose, yareli-sucrose 2 completed [facility] [place] 11/24/2022 14:09:34 COVID-19, mRNA, LNP-S, bivalent, PF, 30 mcg/0.3 mL dose 2 completed [facility] [place] 11/24/2022 14:09:34 zoster live 7 completed Not Available [facility] 08/24/2023 04:03:59 Pneumococcal conjugate PCV 13 9 completed Not Available [facility] 08/24/2023 04:03:59 zoster recombinant 3 completed Miriam cuadra, [facility], [facility] 06/15/2023 16:25:40 [facility]oster recombinant 3 [facility] 06/15/2023 16:25:40 COVID-19, mRNA, LNP-S, bivalent, PF, 30 mcg/0.3 mL dose 3 [facility], [facility] 06/15/2023 16:25:40 RSV, recombinant, protein subunit RSVpreF, adjuvant reconstituted, 0.5 mL, PF 3 completed [facility], [facility] 08/19/2023 13:37:03 Influenza, adjuvanted, quadrivalent, PF 3 completed [facility], [facility] 08/19/2023 13:37:03 COVID-19, mRNA, LNP-S, PF, yareli-sucrose, 30 mcg/0.3 mL 3 [facility] 08/19/2023 13:37:03 Tdap 3 completed [facility], [facility] 08/19/2023 13:37:03 Past Encounters Encounter ID Performer Location Encounter Start Date Encounter Closed Date Diagnosis/Indication Diagnosis SNOMED-CT Code Diagnosis ICD10 Code Diagnosis Note [id number] [facility] [address] [address] 10/13/2021 00:00:00 10/16/2021 07:45:30 [id number] _ATHENA_M IGRATION_ DEFAULT_2 2_1 , 12/01/2021 00:00:00 12/01/2021 09:36:[id number] [address] 04/14/2022 00:00:00 04/19/2022 17:35:10 [id number] Andrew Perez MD [facility] RAZA [address] [place] [address] 11/24/2022 13:42:57 11/24/2022 14:57:38 Hyperlipidemia 95928941 E78.5 Hypothyroidism 91569618 E03.9 Osteoporosis 26916098 M8 1.0 Carotid bruit 256415916 R09.89 Systolic murmur 07259034 R01.1 [id number] NBA GARCIA RAZA [address] [place] [address] 03/31/2023 13:26:29 03/31/2023 15:50:32 Postmenopausal state 95191484 Z78.0 Hypothyroidism 22123915 E03.9 Hyperlipidemia 64268276 E78.5 Osteoporosis 23709067 M8 1.0 Carotid bruit 381675501 R09.89 Depression screening 171 072073 Z13.31 [id number] [facility] GARCIA RAZA [address] [place] [address] 05/07/2023 09:44:29 05/07/2023 11:09:20 Osteoporosis 85242036 M81.0 Lumbar spine T score -3.9Femora l neck T score -2.9Hip T score -2.7 Discussed Forteo and Torrey and patient chose Evenity due to the ease of administra tion compared to a daily shotdiscus sed side effects and contraindi cations/bl ack box warning of incr. risk of OH, stroke, and cardiovasc ular ;we will monitor calcium levelaware that after the 12 shots she will need to go to bisphospha nates- alendronat e weekly to maintain the bone gain [id number] MD PAKO Keyes RAZA [address] [place] [address] 05/27/2023 13:23:56 05/27/2023 15:25:31 Osteoporosis 52738347 M81.0 [id number] MD PAKO Keyes RAZA [address] [place] [address] 06/24/2023 08:09:05 06/24/2023 09:25:18 Osteoporosis 37705101 M81.0 [id number] Adnrew Perez MD [facility] [address] [place] [address] 07/27/2023 08:23:33 07/27/2023 08:45:11 Osteoporosis 43146924 M81.0 [id number] Andrew Perez MD [facility] [address] [place] [address] 08/19/2023 13:29:31 08/19/2023 14:26:10 Adult health examination 897699675 Z00.00 Annual Wellness Visit done today Normal bod y mass index 27504525 Z68.22 BMI on chart and recorded for quality measure documentat ion Depression screening 171 252091 Z13.31 [id number] MD APKO Keyes [address] [place] [address] 08/25/2023 08:15:42 08/25/2023 08:27:49 Osteoporosis 50372931 M81.0 Health Concerns Section Related Observation LastModified by Organization Detai ls LastModified Time None Recorded Concern Status LastModified by Organization Details LastModified Time None Recorded Advance Directives Directive None Recorded Payers Encounter Date Sequence Insurance Name Policy Number Policy Johnson Covered Member ID Johnson Member ID Guarantor Name 05/27/2023 1 [place] Jessica Phillips [id number] Jessica Phillips 05/27/2023 2 [employer] OPTIONS (MEDICARE SUPPLEMENT) Jessica Phillips [id number] Jessica Phillips 06/24/2023 1 [place] Phillips [id number] Jessica Phillips 06/24/2023 2 [employer] OPTIONS (MEDICARE SUPPLEMENT) Jessica Phillips [id number] Jessica Phillips 07/27/2023 1 [place] Phillips [id number] Jessica Phillips 07/27/2023 2 [employer] OPTIONS (MEDICARE SUPPLEMENT) Jessica Phillips [id number] Jessica Phillips 08/19/2023 1 [place] Phillips [id number] Jessica Phillips 08/19/2023 2 [employer] OPTIONS (MEDICARE SUPPLEMENT) Jessica Phillips [id number] Jessica Phillips 08/25/2023 1 [place] Jessica Phillips [id number] Jessica Phillips 08/25/2023 2 [employer] OPTIONS (MEDICARE SUPPLEMENT) Jessica Phillips [id number] Jessica Phillips Notes Date Note Type Note Provider Name and Address Organization Details Recorded Time 08/19/2023 text/html ANNUAL WELLNESS VISIT QUESTIONNAIRE Has the patient had any change or additions to their Medical Care Team since the last visit? i.e. pharmacy, medical suppliers, doctors No What is the Patient's living arrangements? Live with Spouse What type of residence does the Patient live in? Single Family Home How many stories (floors) to the Patient's residence? Single Story (1 floor) Does the Patient have smoke / CO detectors in the home? Yes Does the Patient use any of the following Respirator Machines? Nebulizer - No Oxygen - No CPAP/BiPAP - No Is the Patient able to afford his/her medications? Yes What type of transportation does the Patient use? I use my own car Has the Patient had a weight change in the past 6 months? No What type of diet the patient is currently following? Regular What best describes the Patient's level of Physical activity? Moderate Does the Patient use Tobacco Products? No Has the Patient seen a Dentist in the last 12 months? Yes Does the Patient always use a seat belt routinely? Yes Does the Patient use sunscreen routinely? Yes Does the Patient wear a helmet when riding a bicycle/motorcycle? Yes Is the Patient sexually active? Yes, uses safe sex practices How would the patient rate their health compared to others your age? Better How would the patient rate their health today compared to last year? Same Does the Patient have Pain? No Is the patient using narcotics/opioids for pain? No Is the patient taking or using any other harmful substances? No How much urinary incontinence does the Patient experience? None Does the Patient or people around the Patient have concerns about the Patient's hearing? No Does the Patient or people around the Patient have concerns about the Patient's vision? Currently wear glasses/contacts Does the Patient use any of the following for mobility assistance? Cane - No Crutches - No Walker - No Wheelchair/Scooter - No In the past year has the Patient had concerns about balance or walking or feeling unsteady on his/her feet? No In the past year has the Patient had a fall? No STEADI Fall Risk Assessment I have fallen in the past year. - No I use or have been advised to use a cane or walker to get around safely. - No Sometimes I feel unsteady when I am walking. - No I steady myself by holding onto furniture when walking at home - No I am worried about falling. - No I need to push with my hands to stand up from a chair. - No I have some trouble stepping up onto a curb. - No I often have to clark to the toilet. - No I have lost some feeling in my feet. - No I take medicine that sometimes makes me feel light-headed or more tired than usual - No I take medicine to help me sleep or improve my mood. - No I often feel sad or depressed. - No Does the Patient's home have any trip hazards like throw rugs or uneven floors? No Does the Patient need assistance with Bathing/Toileting/Ea ting Bathing/Grooming - No Toileting - No Eating - No Does the Patient or the people around the Patient have concerns about his/her memory? No Does the Patient have an Advance Directive (Living Will)? No Colonoscopy Date 11/28/2018 Most recent bone density 04/19/2023 Date of last pap 12/01/2021 Date of last mammogram 10/29/2022 PHQ Score No or Minimal depression, (0). Imported from [facility] on 08/19/2023 Andrew Perez MD [address] [facility] [address], [place], [address], [facility] - [facility], op5 08/23/2023 14:03:14 OBGyn Episode No OBEpisode recorded.
--- OUTSIDE RECORDS SUMMARY | 2024-11-24 08:46 | XMS_ITS | Clinical Summary ---
Author Organization [facility] Laure Mejia Address [address] [place] [address] Care Team Providers Care Block Sealer Name Role Phone Fam Ryan MD Primary Care Provider Allergies Active Allergy Reactions Criticality Noted Date Comments Codeine Nausea and Vomiting Low 06/29/2024 Morphine Nausea and Vomiting Low 06/29/2024 Medications simvastatin (ZOCOR) 20 mg tablet Take 20 mg by mouth daily. Active levothyroxine 75 mcg tablet Take 75 mcg by mouth daily. Active calcium carbonate + vitamin D (CALTRATE+D) 600 mg-10 mcg (400 unit) Tablet Take 1 Tablet by mouth 2 times daily with meals. Active multivitamins- minerals-lutei n (CENTRUM SILVER) Tablet Take 1 Tablet by mouth daily. Active psyllium (METAMUCIL) Packet Take 1 Packet by mouth 2 times daily. Active methylPREDNISo lone (MEDROL DOSPACK) 4 mg Tablets, Dose Pack Take 4 mg by mouth see administration instructions. Active denosumab (PROLIA) 60 mg/mL Syringe Inject 60 mg by subcutaneous injection one time only. 2x per year Active Active Problems No known active problems Encounters Date Type Department Care Team Description 11/21/2024 External Device Data [facility] ABSTRACTION Provider, Abstract 11/07/2024 External Device Data [facility] ABSTRACTION Provider, Abstract 10/12/2024 External Device Data [facility] ABSTRACTION Provider, Abstract 10/11/2024 External Device Data [facility] ABSTRACTION Provider, Abstract 10/10/2024 External Device Data [facility] ABSTRACTION Provider, Abstract 10/03/2024 External Device Data [facility] ABSTRACTION Provider, Abstract from Last 3 Months Family History Medical History Relation Name Comments Heart Disease Brother 1 No Known Problems Brother 2 Heart Disease Father Lung Cancer Father Brain Cancer Mother Heart Disease Mother Lung Cancer Mother Relation Name Status Comments Brother 1 Brother 2 Father Mother Social History Tobacco Use Types Packs/Day Years Used Date Smoking Tobacco: Former Cigarettes 1.5 30 1 - 06/29/2006 Smokeless Tobacco: Never Tobacco Cessation:Counseling Given: Not Answered Alcohol Use Standard Drinks/Week Comments Yes 0 (1 standard drink = 0.6 oz pur e alcohol) Socially Comments Unknown Sex and Gender Information Value Date Recorded Sex Assigned at Female 07/03/2024 6:53 PM CDT Legal Sex Female 2:49 PM CDT Gender Identity Female 07/03/2024 6:53 PM CDT Sexual Orientation Not on file Last Filed Vital Signs Vital Sign Reading Time Taken Comments Blood Pressure 147/62 08/10/2024 10:12 AM [employer] Pulse 64 08/10/2024 10:10 AM [employer] Temperature 36.6 C (97.8 F) 08/10/2024 10:10 AM [employer] Respiratory Rate 15 08/10/2024 10:10 AM [employer] Oxygen Saturation 98% 08/10/2024 10:10 AM [employer] Inhaled Oxygen Concentration - - Weight 49.6 kg (109 lb 6.4 oz) 08/10/2024 10:10 AM [employer] Height 149.9 cm (4' 11 ) 06/29/2024 10:26 AM CDT Body Mass Index 22.1 06/29/2024 10:26 AM CDT Plan of Treatment Upcoming Encounters Date Type Department Care Team (Late st Contact Info) Description 12/08/2024 11:15 AM CDT Office Visit [facility] Oncology and Hematology - [place] [address] [facility] [address] [place] [address] Crow Fishman MD [address] [facility] [address] [place] [address] Health Maintenance Due Date Last Done Comments DTAP/TDAP/TD VACCINES (1 - Tdap) 12/03/1974 Traditional Medicare (ACO) A nnual Wellness Visit 12/03/1974 BREAST CANCER SCREENING 1995 COLORECTAL SCREENING 12/03/2000 Colorectal Cancer Screening 12/03/2000 FIT-DNA Q 3 years 12/03/2000 FIT/FOBT Q 1 year 12/03/2000 Flex Sig/CT Colonography Q 5 years 12/03/2000 ZOSTER VACCINE (1 of 2) 12/03/2005 PNEUMOCOCCAL VACCINE 50+ YEA RS (2 of 2 - PPSV23) 09/07/2018 09/07/2017 INFLUENZA VACCINE (#1) 2024 , 06/04/2020, 06/08/2019, Additional history exists RSV VACCINE (60+ or ) (1 - 1-dose 75+ series) 12/03/2030 OSTEOPOROSIS SCREENING Completed 09/06/2023 Insurance MEDICARE PART A AND B [facility] [id number] [place] [address] Care Teams Block Sealer Relationship Specialty Start Date End Date Fam Ryan MD PCP - General Internal Medicine 05/18/24
--- OUTSIDE RECORDS SUMMARY | 2024-11-24 08:46 | XMS_ITS | Data Portability ---
Author Organization [place] [facility] [employer], Main Office Address [address] [place] [address] Care Team Providers Care Dieing Out Machine Operator Name Role Phone FAM RYAN Primary Care Provider [phone] CROW FISHMAN Export Manager Assessment Encounter Date Assessment Date Assessment LastModified by Organization Details LastModified Time 01/10/2024 01/10/2024 12/31/2023: AST 47 01/06/2024: LFTs WNL Not available 01/10/2024 09:57:26 04/17/2024 04/17/2024 12/31/2023: AST 47 01/06/2024: LFTs WNL 04/10/2024: WBC 3.8 Not available 04/17/2024 09:59:35 07/31/2024 07/31/2024 12/31/2023: AST 47 01/06/2024: LFTs WNL 04/10/2024: WBC 3.8 : COVID 19 +ve ER 07/24/2024: Glob 2.4 Lipids: WNL 07/28/2024: Dr Fishman WBC 3.8 Not available 07/31/2024 11:09:02 Plan of Treatment Reminders Order Date Submit Date Provider Last Modified By Organization Details Last Modified Time Details Appointments Any 15 2024 09:15A Malinda anthony MD Not available Not available Not available Lab vitamin D, 25-hydrox y, total, serum 2023 024 [email or web address] Not available 07/31/2024 11:39:24 CBC w/ auto diff 2023 024 [email or web address] Not available 07/31/2024 11:39:24 lipid panel, serum 2023 024 Not available 07/31/2024 11:39:23 CMP, serum or plasma 2023 024 [email or web address] Not available 07/31/2024 11:39:24 CBC w/ auto diff 2023 024 [email or web address] Not available 07/31/2024 11:39:24 TSH + free T4, serum 2023 024 [email or web address] Not available 07/31/2024 11:39:24 vitamin D, 25-hydrox y, total, serum 2023 024 [email or web address] Not available 10/16/2024 10:12:06 CBC w/ auto diff 2023 024 JENNIFER Not available 05/09/2024 13:09:23 lipid panel, serum 2023 024 JENNIFER Not available 07/24/2024 12:21:09 CMP, serum or plasma 2023 024 JENNIFER Not available 07/24/2024 12:21:14 CBC w/ auto diff 2023 024 JENNIFER Not available 05/08/2024 11:14:10 TSH + free T4, serum 2023 024 [email or web address] Not available 10/16/2024 10:12:06 vitamin D, 25-hydrox y, total, serum 2023 024 [email or web address] Not available 07/10/2024 10:58:54 hepatitis (A+B+C) panel, serum 2023 024 [email or web address] Not available 07/17/2024 09:56:40 lipid panel, serum 2023 024 JENNIFER Not available 04/10/2024 11:55:50 CMP, serum or plasma 2023 024 JENNIFER Not available 04/10/2024 11:55:56 CBC w/ auto diff 2023 024 JENNIFER Not available 04/10/2024 11:36:45 TSH + free T4, serum 2023 024 JENNIFER Not available 04/11/2024 15:07:55 vitamin D, 25-hydrox y, total, serum 2022 023 [email or web address] Not available 03/15/2024 09:03:40 lipid panel, serum 2022 023 JENNIFER Not available 12/31/2023 13:15:02 CMP, serum or plasma 2022 023 [email or web address] Not available 03/15/2024 09:03:40 CBC w/ auto diff 2022 023 JENNIFER Not available 12/31/2023 13:13:07 TSH + free T4, serum 2022 023 [email or web address] Not available 03/15/2024 09:03:40 Referral gynecolog ist referral - Please call patient to schedule. 2023 024 [email or web address] Lyudmila Moses MD, [address] [facility] , [address], [place], [address], 10/31/2024 16:33:05 hematolog ist referral 2023 024 [email or web address] Crow Fishman MD, [address], [place], [address], 07/31/2024 15:20:55 gynecolog ist referral 2023 024 Lyudmila Moses MD, [address], [address], [place], [address], 10/16/2024 10:12:18 gynecolog ist referral 2023 024 [email or web address] Lyudmila Moses MD, [address], [place], [address], 07/10/2024 10:59:12 gynecolog ist referral 2022 023 imelda Moses MD, [address] [facility], [address], [place], [address], 04/05/2024 17:04:17 Procedures colonosco py screening (PROC) 2023 024 imelda Morales MD, [address], [address], [place], [address], 10/16/2024 10:11:52 colonosco py screening (PROC) 2023 024 JENNIFER Morales MD, [address], [address], [place], [address], 01/14/2024 11:50:06 colonosco py screening (PROC) 2022 023 JENNIFER Morales MD, [address], [address], [place], [address], 10/27/2023 12:07:41 Surgeries None recorded. Imaging MAMMO, screening , digital, bilateral 2023 024 [facility] [place], [address] [facility] [address], [place], [address], 01/24/2024 12:21:38 [place], liver 2023 024 [facility] ([facility]), [address] [place], [address], 07/27/2024 12:51:09 MAMMO, screening , digital, bilateral 2022 023 [facility] [place], [address] [facility] [address], [place], [address], 01/24/2024 12:38:48 Medication Orders None recorded. Patient TargetsNo targets recorded. Patient Instructions Encounter Date Encounter Id Patient Instructions Last Modified By Organization Details Last Modified Time 01/10/2024 [id number] dementia rating scale-2* buddy Matias Not available 01/10/2024 16:53:55 depression screening* buddy Matias Not available 01/10/2024 16:53:54 alcohol misuse* buddy 2 Not available 01/10/2024 16:53:55 multi-dimensiona l health assessment questionnaire* buddy Matias Not available 01/10/2024 16:53:55 Personalized Hea lth Plan and Screening Recommendations Advance Directives - Do you have one? No Advance Directives - Do we have your advance directive on file in your health record? Primary Prevention/Interven tion (prevents or decreases the chance of common diseases from occurring) Smoking Risk: Non Smoker Alcohol Misuse Screening: Negative Refer to attached alcohol cessation handout Refer to attached handout and prescription will be sent to pharmacy Decrease alcohol intake to 1 or less servings per day Continue to consider stopping alcohol and call if we can assist you Weight: Appropriate Physical activity: Appropriate physical activity decrease sitting time to no more than 5hr/day Nutrition: Good Average Fall Risk (screened today): Low Vaccines Pneumococcal: Ordered Recommended today Recommended today, but you have declined No further needed Influenza: Your next one in the fall of this year Chronic Disease Risks Stroke: Low Risk Intermediate Risk I have no recommendations Heart Attack: Low risk Intermediate Risk I have no recommendations Clogging of the Arteries: Low risk Intermediate Risk Diabetes: Low Risk I have no recommendations Secondary Prevention/Interven tion (detects treatable diseases before they may cause symptoms, disability, or ) Breast Cancer Screening with mammogram: Your next mammogram: Ordered Recommended today Cervical/Uterine/Ov jovany Cancer Screening: Your next PAP/pelvic in: Referral to tea bag packer Recomm ended today Osteoporosis Screening: Your next DEXA in: Ordered Recomme nded today Date Screening Last Performed: _2022___ Colon Cancer Screening: Colonoscopy Date Screening Last Performed: 2023 Eye Disease Screening: Dementia Risk: Low I have no recommendations Depression Screening: Negative Not available 01/10/2024 10:08:46 Reason for Referral Crayon Molding Machine Operator Referral for Gy necologic examination Referring Physician: Fam Ryan, Internal Medicine, Encounter Date: 09/06/2023 Crayon Molding Machine Operator Referral for Gy necologic examination Referring Physician: Fam Ryan Internal Medicine, Encounter Date: 01/10/2024 Crayon Molding Machine Operator Referral for Gy necologic examination Referring Physician: Fam Ryan Internal Medicine, Encounter Date: 04/17/2024 Crayon Molding Machine Operator Referral for Gy necologic examination Please call patient to schedule. Referring Physician: Fam Ryan Internal Medicine, Encounter Date: 07/31/2024 Referring Physician: Fam Ryan Internal Medicine, Encounter Date: 07/31/2024 Results Created Date Observation Date Name Description Value Unit Range Abnormal Flag Note LastModifiedBy Organization Detail LastModifiedTime 06/23/2006/23/2021 COMPR EHENS OLIVER METAB OLIC PANEL carbon dioxide 27 mmol/ L 22-30 Not Available [facility] (Lab) [address] [place], [address], 06/23/2021 13:22:56 06/23/2006/23/2021 COMPR EHENS OLIVER METAB OLIC PANEL sodium 136 mmol/ L 137-14 5 low Not Available [facility] (Lab) [address] [place], [address], 06/23/2021 13:22:56 06/23/2006/23/2021 COMPR EHENS OLIVER METAB OLIC PANEL potassium 4.7 mmol/ L 3.5-5. 1 Not Available [facility] (Lab) [address] [place], [address], 06/23/2021 13:22:56 06/23/2006/23/2021 COMPR EHENS OLIVER METAB OLIC PANEL chloride 103 mmol/ L 98-107 Not Available [facility] (Lab) [address] [place], [address], 06/23/2021 13:22:56 06/23/20 21 06/23/2021 COMPR EHENS OLIVER METAB OLIC PANEL agap 10.7 mmol/ L 14-22 low Not Available [facility] (Lab) [address] [place], [address], 06/23/2021 13:22:56 06/23/20 21 06/23/2021 COMPR EHENS OLIVER METAB OLIC PANEL glucose 94 mg/dL 70-99 Not Available [facility] (Lab) [address] [place], [address], 06/23/2021 13:22:56 06/23/20 21 06/23/2021 COMPR EHENS OLIVER METAB OLIC PANEL BUN 17 mg/dL 8-19 Not Available [facility] (Lab) [address] [place], [address], 06/23/2021 13:22:56 06/23/20 21 06/23/2021 COMPR EHENS OLIVER METAB OLIC PANEL creatinine 0.70 mg/dL 0.66-1 .25 Not Available [facility] (Lab) [address] [place], [address], 06/23/2021 13:22:56 06/23/20 21 06/23/2021 COMPR EHENS OLIVER METAB OLIC PANEL aspartate aminotransfe rase 28 U/L 15-37 Not Available [facility] (Lab) [address] [place], [address], 06/23/2021 13:22:56 06/23/20 21 06/23/2021 COMPR EHENS OLIVER METAB OLIC PANEL GFR >60 Refer ence Range : [facility] ge GFR Healt hy Adult : >60 mL/mi n/1.7 3 m2 Chron ic Kidne y Disea se: 15-60 mL/mi n/1.7 3 m2 Kidne y Failu re: <15/m L/min /1.73 m2 www.n iddk. nih.g ov MDRD study equat ion hasn' t been valid ated in child chuyita <18 yrs of age, pregn ant women , the elder ly >85 yrs of age, or in some racia l or ethni c subgr oups, suc as Hispa nics. Outsi de the valid ated jazmyne eters , estim ated GFR is less accur ate requi ring clini kristin judgm ent on a case by case basis . Clini kristin inter preta tion for other races and ages must be made by the clini norman . Futhe rmore , any of th e limit ation s with the use of serum creat inine relat ed to nutri pierce l statu s o r medic ation usage hasn' t accou nted for the MDRD Study equat ion. For perso ns < 18 yrs of age, a pedia tric GFR calcu lator can be locat ed on the [facility] websi te: https ://dottie w.juan somersy.o rg/pr ofess ional s/kdo qi/gf r_cal culat or Not Available [facility] (Lab) [address] [place], [address], 06/23/2021 13:22:56 06/23/2006/23/2021 COMPR EHENS OLIVER METAB OLIC PANEL alkaline phosphatase 44 U/L 38-126 Not Available [facility] (Lab) [address] [place], [address], 06/23/2021 13:22:56 06/23/20 21 06/23/2021 COMPR EHENS OLIVER METAB OLIC PANEL alanine aminotransfe rase 19 U/L 0-35 Not Available [facility] (Lab) [address] [place], [address], 06/23/2021 13:22:56 06/23/20 21 06/23/2021 COMPR EHENS OLIVER METAB OLIC PANEL bilirubin, total 0.30 mg/dL 0.20-1 .30 Not Available [facility] (Lab) [address] [place], [address], 06/23/2021 13:22:56 06/23/20 21 06/23/2021 COMPR EHENS OLIVER METAB OLIC PANEL calcium 9.4 mg/dL 8.4-10 .2 Not Available [facility] (Lab) [address] [place], [address], 06/23/2021 13:22:56 06/23/20 21 06/23/2021 COMPR EHENS OLIVER METAB OLIC PANEL total protein 6.5 g/dL 6.3-8. 2 Not Available [facility] (Lab) [address] [place], [address], 06/23/2021 13:22:56 06/23/20 21 06/23/2021 COMPR EHENS OLIVER METAB OLIC PANEL albumin 4.0 g/dL 3.0-4. 4 Not Available [facility] (Lab) [address] [place], [address], 06/23/2021 13:22:56 06/23/20 21 06/23/2021 COMPR EHENS OLIVER METAB OLIC PANEL globulin 2.5 g/dL 2.6-4. 2 low Not Available [facility] (Lab) [address] [place], [address], 06/23/2021 13:22:56 06/23/20 21 06/23/2021 COMPR EHENS OLIVER METAB OLIC PANEL A/G ratio 1.6 ratio 1.0-2. 0 Not Available [facility] (Lab) [address] [place], [address], 06/23/2021 13:22:56 06/23/20 21 06/23/2021 CBC/C OMPLE TE BLD COUNT W/DIF F hematocrit 38.5 % 35.7-4 5.7 Not Available [facility] (Lab) [address] [place], [address], 06/23/2021 12:56:24 06/23/20 21 06/23/2021 CBC/C OMPLE TE BLD COUNT W/DIF F white blood cells 3.5 x10'3 /uL 4.2-10 .8 low Not Available [facility] (Lab) [address] [place], [address], 06/23/2021 12:56:24 06/23/20 21 06/23/2021 CBC/C OMPLE TE BLD COUNT W/DIF F red blood cells 4.28 x10'6 /uL 3.80-5 .20 Not Available [facility] (Lab) [address] [place], [address], 06/23/2021 12:56:24 06/23/2006/23/2021 CBC/C OMPLE TE BLD COUNT W/DIF F hemoglobin 12.5 g/dL 12.0-1 5.6 Not Available [facility] (Lab) [address] [place], [address], 06/23/2021 12:56:24 06/23/20 21 06/23/2021 CBC/C OMPLE TE BLD COUNT W/DIF F mean red cell volume 90.0 fL 82.0-9 9.0 Not Available [facility] (Lab) [address] [place], [address], 06/23/2021 12:56:24 06/23/2006/23/2021 CBC/C OMPLE TE BLD COUNT W/DIF F mean red cell hemoglobin 29.2 pg 27.0-3 3.0 Not Available [facility] (Lab) [address] [place], [address], 06/23/2021 12:56:24 06/23/20 21 06/23/2021 CBC/C OMPLE TE BLD COUNT W/DIF F mean RBC HGB concentratio n 32.5 g/dL 31.0-3 6.0 Not Available [facility] (Lab) [address] [place], [address], 06/23/2021 12:56:24 06/23/20 21 06/23/2021 CBC/C OMPLE TE BLD COUNT W/DIF F red cell distribution width 12.9 % 11.8-1 5.5 Not Available [facility] (Lab) [address] [place], [address], 06/23/2021 12:56:24 06/23/20 21 06/23/2021 CBC/C OMPLE TE BLD COUNT W/DIF F platelets 323 x10'3 /uL 150-40 0 Not Available [facility] (Lab) [address] [place], [address], 06/23/2021 12:56:24 06/23/20 21 06/23/2021 CBC/C OMPLE TE BLD COUNT W/DIF F mean platelet volume 10.6 fL 9.0-12 .4 Not Available [facility] (Lab) [address] [place], [address], 06/23/2021 12:56:24 06/23/20 21 06/23/2021 CBC/C OMPLE TE BLD COUNT W/DIF F neutrophils 41.2 % 39.0-7 2.0 Not Available [facility] (Lab) [address] [place], [address], 06/23/2021 12:56:24 06/23/20 21 06/23/2021 CBC/C OMPLE TE BLD COUNT W/DIF F lymphocytes 43.1 % 16.0-4 7.0 Not Available [facility] (Lab) [address] [place], [address], 06/23/2021 12:56:24 06/23/20 21 06/23/2021 CBC/C OMPLE TE BLD COUNT W/DIF F monocytes 10.7 % 5.0-12 .0 Not Available [facility] (Lab) [address] [place], [address], 06/23/2021 12:56:24 06/23/2006/23/2021 CBC/C OMPLE TE BLD COUNT W/DIF F eosinophils 3.8 % 1.0-7. 0 Not Available [facility] (Lab) [address] [place] [place], [address], 06/23/2021 12:56:24 06/23/20 21 06/23/2021 CBC/C OMPLE TE BLD COUNT W/DIF F basophils 0.9 % 0.0-2. 0 Not Available [facility] (Lab) [address] [place], [address], 06/23/2021 12:56:24 06/23/20 21 06/23/2021 CBC/C OMPLE TE BLD COUNT W/DIF F immature granulocytes 0.3 % 0.00-0 .50 Not Available [facility] (Lab) [address] [place], [address], 06/23/2021 12:56:24 06/23/2006/23/2021 CBC/C OMPLE TE BLD COUNT W/DIF F neutrophils, absolute count 1.43 x10'3 /uL 1.5-8. 0 low Not Available [facility] (Lab) [address] [place], [address], 06/23/2021 12:56:24 06/23/2006/23/2021 CBC/C OMPLE TE BLD COUNT W/DIF F lymphocytes, absolute count 1.49 x10'3 /uL 1.07-3 .43 Not Available [facility] (Lab) [address] [place], [address], 06/23/2021 12:56:24 06/23/20 21 06/23/2021 CBC/C OMPLE TE BLD COUNT W/DIF F monocytes, absolute count 0.37 x10'3 /uL 0.29-0 .99 Not Available [facility] (Lab) [address] [place], [address], 06/23/2021 12:56:24 06/23/2006/23/2021 CBC/C OMPLE TE BLD COUNT W/DIF F eosinophils, absolute count 0.13 x10'3 /uL 0.02-0 .53 Not Available [facility] (Lab) [address] [place], [address], 06/23/2021 12:56:24 06/23/20 21 06/23/2021 CBC/C OMPLE TE BLD COUNT W/DIF F basophils, absolute count 0.03 x10'3 /uL 0.01-0 .08 Not Available [facility] (Lab) [address] [place], [address], 06/23/2021 12:56:24 06/23/2006/23/2021 CBC/C OMPLE TE BLD COUNT W/DIF F immature granulocytes ,absolute 0.01 x10'3 /uL 0.00-0 .05 Not Available [facility] (Lab) [address] [place], [address], 06/23/2021 12:56:24 06/23/20 21 06/23/2021 CBC/C OMPLE TE BLD COUNT W/DIF F nucleated red blood cells 0.0 % -0 Not Available [facility] (Lab) [address] [place], [address], 06/23/2021 12:56:24 06/23/20 21 06/23/2021 CBC/C OMPLE TE BLD COUNT W/DIF F NRBC# 0.00 x10'3 /uL Not Available [facility] (Lab) [address] [place], [address], 06/23/2021 12:56:24 06/23/20 21 06/23/2021 TSH thyroid-stim ulating hormone 0.236 uIU/m L 0.465- 4.680 low Not Available [facility] (Lab) [address] [place], [address], 06/23/2021 21:44:45 06/23/2006/23/2021 T4 FREE free T4 1.31 NG/dL 0.78-2 .19 Not Available [facility] (Lab) [address] [place], [address], 06/23/2021 21:24:09 06/23/2006/23/2021 LIPID PANEL cholesterol 175 mg/dL 140-19 9 NIH COOKIE NSUS RECOM MENDA TION FOR DRU STERO L: ADULT CHILD LOW RISK: <200 <170 BORDE RLINE : <200- 239 ----- HIGH RISK: >240 >200 Not Available [facility] (Lab) [address] [place], [address], 06/23/2021 13:22:47 06/23/2006/23/2021 LIPID PANEL triglyceride s 52 mg/dL 0-150 NIH COOKIE NSUS REPOR T RECOM MENDA TION FOR TRIGL YCERI KADEEM: ADULT CHILD LOW RISK: <150 ----- BODER LINE: 150-1 99 ----- HIGH RISK: >200 ----- Not Available [facility] (Lab) [address] [place], [address], 06/23/2021 13:22:47 06/23/2006/23/2021 LIPID PANEL HDL cholesterol 74 mg/dL 40- Not Available [facility] (Lab) [address] [place], [address], 06/23/2021 13:22:47 06/23/2006/23/2021 LIPID PANEL LDL cholesterol, calculated 91 mg/dL 0-130 NIH COOKIE NSUS REPOR T RECOM MENDA TIONS FOR LDL: ADULT CHILD LOW RISK <130 <110 (OPTI MAL LDL) <100 ----- BORDE RLINE : 130-1 59 ----- HIGH RISK: >160 >130 A TRIGL YCERI DE RESUL T >400 INVAL IDATE S THE CALCU LATIO N FOR LDL FRACT IONAT ION - THE LDL RESUL T WILL NOT BE REPOR BRIGIDA. Not Available [facility] (Lab) [address] [place], [address], 06/23/2021 13:22:47 12/31/1912/31/2023 CBC/C OMPLE TE BLD COUNT W/DIF F white blood cells 4.2 x10'3 /uL 4.2-10 .8 Not Available [facility] (Lab) [address] [place], [address], 12/31/2023 13:13:07 12/31/19 24 12/31/2023 CBC/C OMPLE TE BLD COUNT W/DIF F red blood cells 4.32 x10'6 /uL 3.80-5 .20 Not Available [facility] (Lab) [address] [place], [address], 12/31/2023 13:13:07 12/31/19 24 12/31/2023 CBC/C OMPLE TE BLD COUNT W/DIF F hemoglobin 12.7 g/dL 12.0-1 5.6 Not Available [facility] (Lab) [address] [place], [address], 12/31/2023 13:13:07 12/31/1912/31/2023 CBC/C OMPLE TE BLD COUNT W/DIF F hematocrit 38.7 % 35.7-4 5.7 Not Available [facility] (Lab) [address] [place], [address], 12/31/2023 13:13:07 12/31/19 24 12/31/2023 CBC/C OMPLE TE BLD COUNT W/DIF F mean red cell volume 89.6 fL 82.0-9 9.0 Not Available [facility] (Lab) [address] [place], [address], 12/31/2023 13:13:07 12/31/19 24 12/31/2023 CBC/C OMPLE TE BLD COUNT W/DIF F mean red cell hemoglobin 29.4 pg 27.0-3 3.0 Not Available [facility] (Lab) [address] [place], [address], 12/31/2023 13:13:07 12/31/19 24 12/31/2023 CBC/C OMPLE TE BLD COUNT W/DIF F mean RBC HGB concentratio n 32.8 g/dL 31.0-3 6.0 Not Available [facility] (Lab) [address] [place], [address], 12/31/2023 13:13:07 12/31/19 24 12/31/2023 CBC/C OMPLE TE BLD COUNT W/DIF F red cell distribution width 13.1 % 11.8-1 5.5 Not Available [facility] (Lab) [address] [place], [address], 12/31/2023 13:13:07 12/31/19 24 12/31/2023 CBC/C OMPLE TE BLD COUNT W/DIF F platelets 251 x10'3 /uL 150-40 0 Not Available [facility] (Lab) [address] [place], [address], 12/31/2023 13:13:07 12/31/19 24 12/31/2023 CBC/C OMPLE TE BLD COUNT W/DIF F mean platelet volume 11.5 fL 9.0-12 .4 Not Available [facility] (Lab) [address] [place], [address], 12/31/2023 13:13:07 12/31/19 24 12/31/2023 CBC/C OMPLE TE BLD COUNT W/DIF F neutrophils 49.1 % 39.0-7 2.0 Not Available [facility] (Lab) [address] [place], [address], 12/31/2023 13:13:07 12/31/19 24 12/31/2023 CBC/C OMPLE TE BLD COUNT W/DIF F lymphocytes 37.7 % 16.0-4 7.0 Not Available [facility] (Lab) [address] [place], [address], 12/31/2023 13:13:07 12/31/19 24 12/31/2023 CBC/C OMPLE TE BLD COUNT W/DIF F monocytes 8.9 % 5.0-12 .0 Not Available [facility] (Lab) [address] [place], [address], 12/31/2023 13:13:07 12/31/19 24 12/31/2023 CBC/C OMPLE TE BLD COUNT W/DIF F eosinophils 2.9 % 1.0-7. 0 Not Available [facility] (Lab) [address] [place], [address], 12/31/2023 13:13:07 12/31/1912/31/2023 CBC/C OMPLE TE BLD COUNT W/DIF F basophils 1.2 % 0.0-2. 0 Not Available [facility] (Lab) [address] [place], [address], 12/31/2023 13:13:07 12/31/1912/31/2023 CBC/C OMPLE TE BLD COUNT W/DIF F immature granulocytes 0.2 % 0.00-0 .50 Not Available [facility] (Lab) [address] [place], [address], 12/31/2023 13:13:07 12/31/19 24 12/31/2023 CBC/C OMPLE TE BLD COUNT W/DIF F neutrophils, absolute count 2.04 x10'3 /uL 1.5-8. 0 Not Available [facility] (Lab) [address] [place], [address], 12/31/2023 13:13:07 12/31/1912/31/2023 CBC/C OMPLE TE BLD COUNT W/DIF F lymphocytes, absolute count 1.57 x10'3 /uL 1.07-3 .43 Not Available [facility] (Lab) [address] [place], [address], 12/31/2023 13:13:07 12/31/19 24 12/31/2023 CBC/C OMPLE TE BLD COUNT W/DIF F monocytes, absolute count 0.37 x10'3 /uL 0.29-0 .99 Not Available [facility] (Lab) [address] [place], [address], 12/31/2023 13:13:07 12/31/19 24 12/31/2023 CBC/C OMPLE TE BLD COUNT W/DIF F eosinophils, absolute count 0.12 x10'3 /uL 0.02-0 .53 Not Available [facility] (Lab) [address] [place], [address], 12/31/2023 13:13:07 12/31/19 24 12/31/2023 CBC/C OMPLE TE BLD COUNT W/DIF F basophils, absolute count 0.05 x10'3 /uL 0.01-0 .08 Not Available [facility] (Lab) [address] [place], [address], 12/31/2023 13:13:07 12/31/19 24 12/31/2023 CBC/C OMPLE TE BLD COUNT W/DIF F immature granulocytes ,absolute 0.01 x10'3 /uL 0.00-0 .05 Not Available [facility] (Lab) [address] [place], [address], 12/31/2023 13:13:07 12/31/19 24 12/31/2023 CBC/C OMPLE TE BLD COUNT W/DIF F nucleated red blood cells 0.0 % -0 Not Available [facility] (Lab) [address] [place], [address], 12/31/2023 13:13:07 12/31/19 24 12/31/2023 CBC/C OMPLE TE BLD COUNT W/DIF F NRBC# 0.00 x10'3 /uL Not Available [facility] (Lab) [address] [place], [address], 12/31/2023 13:13:07 12/31/19 24 12/31/2023 LIPID PANEL cholesterol 165 mg/dL 140-19 9 [facility] COOKIE NSUS RECOM MENDA TION FOR DRU STERO L: ADULT CHILD LOW RISK: <200 <170 BORDE RLINE : <200- 239 ----- HIGH RISK: >240 >200 Not Available [facility] (Lab) [address] [place], [address], 12/31/2023 13:15:02 12/31/19 24 12/31/2023 LIPID PANEL triglyceride s 60 mg/dL 0-150 [facility] COOKIE NSUS REPOR T RECOM MENDA TION FOR TRIGL YCERI KADEEM: ADULT CHILD LOW RISK: <150 ----- BODER LINE: 150-1 99 ----- HIGH RISK: >200 ----- Not Available [facility] (Lab) [address] [place], [address], 12/31/2023 13:15:02 12/31/19 24 12/31/2023 LIPID PANEL HDL cholesterol 84 mg/dL 40- Not Available [facility] (Lab) [address] [place], [address], 12/31/2023 13:15:02 12/31/19 24 12/31/2023 LIPID PANEL LDL cholesterol, calculated 69 mg/dL 0-130 [facility] COOKIE NSUS REPOR T RECOM MENDA TIONS FOR LDL: ADULT CHILD LOW RISK <130 <110 (OPTI MAL LDL) <100 ----- BORDE RLINE : 130-1 59 ----- HIGH RISK: >160 >130 A TRIGL YCERI DE RESUL T >400 INVAL IDATE S THE CALCU LATIO N FOR LDL FRACT IONAT ION - THE LDL RESUL T WILL NOT BE REPOR BRIGIDA. Not Available [facility] (Lab) [address] [place], [address], 12/31/2023 13:15:02 12/31/19 24 12/31/2023 COMPR EHENS OLIVER METAB OLIC PANEL sodium 136 mmol/ L 137-14 5 low Not Available [facility] (Lab) [address] [place], [address], 12/31/2023 13:15:07 12/31/19 24 12/31/2023 COMPR EHENS OLIVER METAB OLIC PANEL potassium 4.6 mmol/ L 3.5-5. 1 Not Available [facility] (Lab) [address] [place], [address], 12/31/2023 13:15:07 12/31/19 24 12/31/2023 COMPR EHENS OLIVER METAB OLIC PANEL chloride 102 mmol/ L 98-107 Not Available [facility] (Lab) [address] [place], [address], 12/31/2023 13:15:07 12/31/19 24 12/31/2023 COMPR EHENS OLIVER METAB OLIC PANEL carbon dioxide 31 mmol/ L 22-30 high Not Available [facility] (Lab) [address] [place], [address], 12/31/2023 13:15:07 12/31/19 24 12/31/2023 COMPR EHENS OLIVER METAB OLIC PANEL anion gap 7.6 mmol/ L 14-22 low Not Available [facility] (Lab) [address] [place], [address], 12/31/2023 13:15:07 12/31/19 24 12/31/2023 COMPR EHENS OLIVER METAB OLIC PANEL glucose 92 mg/dL 70-99 Not Available [facility] (Lab) [address] [place], [address], 12/31/2023 13:15:07 12/31/19 24 12/31/2023 COMPR EHENS OLIVER METAB OLIC PANEL BUN 12 mg/dL 8-19 Not Available [facility] (Lab) [address] [place], [address], 12/31/2023 13:15:07 12/31/19 24 12/31/2023 COMPR EHENS OLIVER METAB OLIC PANEL creatinine 0.72 mg/dL 0.66-1 .25 Not Available [facility] (Lab) [address] [place], [address], 12/31/2023 13:15:07 12/31/19 24 12/31/2023 COMPR EHENS OLIVER METAB OLIC PANEL GFR >60 Refer ence Range : [facility] ge GFR Healt hy Adult : >60 mL/mi n/1.7 3 m2 Chron ic Kidne y Disea se: 15-60 mL/mi n/1.7 3 m2 Kidne y Failu re: <15/m L/min /1.73 m2 www.n iddk. nih.g ov The MDRD study equat ion has not been valid ated in child chuyita <18 years of age; pregn ant women ; the elder ly >85 years of age; or in some racia l or ethni c subgr oups, such as Hispa nics. Outsi de the valid ated jazmyne eters , estim ated GFR is less accur ate, requi ring clini kristin judgm ent on a case- by-ca se basis . Clini kristin inter preta tion for other races and ages must be made by the clini norman. The MDRD study equat ion has not been valid ated for the evalu ation of serum creat inine relat ed to nutri pierce l statu s or medic ation usage . For perso ns <18 years of age, a pedia tric GFR calcu lator is avail able on the [facility] websi te: https ://dottie boyd.shahnaz ford/darius pennal s/kdo qi/gf r_cal culat or Not Available [facility] (Lab) [address] [place], [address], 12/31/2023 13:15:07 12/31/19 24 12/31/2023 COMPR EHENS OLIVER METAB OLIC PANEL alkaline phosphatase 48 U/L 38-126 Not Available [facility] (Lab) [address] [place], [address], 12/31/2023 13:15:07 12/31/19 24 12/31/2023 COMPR EHENS OLIVER METAB OLIC PANEL alanine aminotransfe rase 23 U/L 0-35 Not Available [facility] (Lab) [address] [place], [address], 12/31/2023 13:15:07 12/31/19 24 12/31/2023 COMPR EHENS OLIVER METAB OLIC PANEL aspartate aminotransfe rase 47 U/L 15-37 high Not Available [facility] (Lab) [address] [place], [address], 12/31/2023 13:15:07 12/31/19 24 12/31/2023 COMPR EHENS OLIVER METAB OLIC PANEL bilirubin, total 0.60 mg/dL 0.20-1 .30 Not Available [facility] (Lab) [address] [place], [address], 12/31/2023 13:15:07 12/31/19 24 12/31/2023 COMPR EHENS OLIVER METAB OLIC PANEL calcium 9.3 mg/dL 8.4-10 .2 Not Available [facility] (Lab) [address] [place], [address], 12/31/2023 13:15:07 12/31/19 24 12/31/2023 COMPR EHENS OLIVER METAB OLIC PANEL total protein 7.4 g/dL 6.3-8. 2 Not Available [facility] (Lab) [address] [place], [address], 12/31/2023 13:15:07 12/31/19 24 12/31/2023 COMPR EHENS OLIVER METAB OLIC PANEL albumin 4.5 g/dL 3.0-4. 4 high Not Available [facility] (Lab) [address] [place], [address], 12/31/2023 13:15:07 12/31/19 24 12/31/2023 COMPR EHENS OLIVER METAB OLIC PANEL globulin 2.9 g/dL 2.6-4. 2 Not Available [facility] (Lab) [address] [place], [address], 12/31/2023 13:15:07 12/31/19 24 12/31/2023 COMPR EHENS OLIVER METAB OLIC PANEL A/G ratio 1.6 ratio 1.0-2. 0 Not Available [facility] (Lab) [address] [place], [address], 12/31/2023 13:15:07 12/31/19 24 12/31/2023 T4 FREE free T4 1.10 NG/dL 0.78-2 .19 Not Available [facility] (Lab) [address] [place], [address], 12/31/2023 14:36:50 12/31/19 24 12/31/2023 VITAM IN D 25-HY DROXY [id number] 79.1 NG/mL 30-100 Vitam in D Statu s: Defic ient: <20 ng/mL Insuf ficie nt: 20-29 ng/mL Suffi cient : 30-10 0 ng/mL Not Available [facility] (Lab) [address] [place], [address], 12/31/2023 14:37:04 12/31/19 24 12/31/2023 TSH thyroid-stim ulating hormone 0.648 uIU/m L 0.465- 4.680 Not Available [facility] (Lab) [address] [place], [address], 12/31/2023 14:38:23 01/06/20 24 01/06/2024 GGT/G -GLUT AMYL TRANS FERAS E gamma-glutam yl transferase 16 U/L 12-43 Not Available [facility] (Lab) [address] [place], [address], 01/06/2024 11:30:38 01/06/20 24 01/06/2024 HEPAT IC/LI KRISTY PANEL alkaline phosphatase 46 U/L 38-126 Not Available [facility] (Lab) [address] [place], [address], 01/06/2024 11:30:49 01/06/20 24 01/06/2024 HEPAT IC/LI KRISTY PANEL alanine aminotransfe rase 19 U/L 0-35 Not Available [facility] (Lab) [address] [place], [address], 01/06/2024 11:30:49 01/06/20 24 01/06/2024 HEPAT IC/LI KRISTY PANEL aspartate aminotransfe rase 28 U/L 15-37 Not Available [facility] (Lab) [address] [place], [address], 01/06/2024 11:30:49 01/06/20 24 01/06/2024 HEPAT IC/LI KRISTY PANEL bilirubin, total 0.40 mg/dL 0.20-1 .30 Not Available [facility] (Lab) [address] [place], [address], 01/06/2024 11:30:49 01/06/20 24 01/06/2024 HEPAT IC/LI KRISTY PANEL bilirubin, conjugated (direct) 0.00 mg/dL 0.00-0 .30 Not Available [facility] (Lab) [address] [place], [address], 01/06/2024 11:30:49 01/06/20 24 01/06/2024 HEPAT IC/LI KRISTY PANEL biliurubin,u ncong. (indirect) 0.30 mg/dL 0.00-1 .1 Not Available [facility] (Lab) [address] [place], [address], 01/06/2024 11:30:49 01/06/20 24 01/06/2024 HEPAT IC/LI KRISTY PANEL total protein 6.4 g/dL 6.3-8. 2 Not Available [facility] (Lab) [address] [place], [address], 01/06/2024 11:30:49 01/06/20 24 01/06/2024 HEPAT IC/LI KRISTY PANEL albumin 4.2 g/dL 3.0-4. 4 Not Available [facility] (Lab) [address] [place], [address], 01/06/2024 11:30:49 01/06/20 24 01/06/2024 HEPAT IC/LI KRISTY PANEL globulin 2.2 g/dL 2.6-4. 2 low Not Available [facility] (Lab) [address] [place], [address], 01/06/2024 11:30:49 01/06/20 24 01/06/2024 HEPAT IC/LI KRISTY PANEL A/G ratio 1.9 ratio 1.0-2. 0 Not Available [facility] (Lab) [address] [place], [address], 01/06/2024 11:30:49 01/21/20 24 01/24/2024 HEPAT ITIS ACUTE PANEL hepatitis A IgM antibody NON-RE ACTIVE non-re active For sampl es repor brigida as Borde rline React oliver for HAV IgM, it is recom madan d a new speci men be obtai jag in 2 weeks and retes brigida. Not Available [facility] (Lab) [address] [place], [address], 01/24/2024 22:38:16 01/21/20 24 01/24/2024 HEPAT ITIS ACUTE PANEL hepatitis A virus signal/cutof 0.01 0.00-0 .79 Not Available [facility] (Lab) [address] [place], [address], 01/24/2024 22:38:16 01/21/20 24 01/24/2024 HEPAT ITIS ACUTE PANEL hepatitis B core IgM antibody NON-RE ACTIVE non-re active Not Available [facility] (Lab) [address] [place], [address], 01/24/2024 22:38:16 01/21/20 24 01/24/2024 HEPAT ITIS ACUTE PANEL HBV core IgM signal/cutof f 0.02 0.00-1 .10 Not Available [facility] (Lab) [address] [place], [address], 01/24/2024 22:38:16 01/21/20 24 01/24/2024 HEPAT ITIS ACUTE PANEL hepatitis B surface antigen NON-RE ACTIVE non-re active All speci mens react oliver for Hepat itis B Surfa ce Antig en will refle x to refer [facility] lab confi rmato ry testi ng. Not Available [facility] (Lab) [address] [place], [address], 01/24/2024 22:38:16 01/21/20 24 01/24/2024 HEPAT ITIS ACUTE PANEL HBV surf.antigen signal/cutof f 0.08 0.00-0 .99 Not Available [facility] (Lab) [address] [place], [address], 01/24/2024 22:38:16 01/21/20 24 01/24/2024 HEPAT ITIS ACUTE PANEL hepatitis C antibody NON-RE ACTIVE non-re active All speci mens react oliver for Hepat itis C Virus antib janett will refle x to PCR confi rmato ry testi ng. Pleas e allow 48-72 hours for resul ts. Not Available [facility] (Lab) [address] [place], [address], 01/24/2024 22:38:16 01/21/20 24 01/24/2024 HEPAT ITIS ACUTE PANEL hepatitis C virus signal/cutof 0.01 0.00-0 .99 Not Available [facility] (Lab) [address] [place], [address], 01/24/2024 22:38:16 04/10/20 24 04/10/2024 CBC/C OMPLE TE BLD COUNT W/DIF F white blood cells 3.8 x10'3 /uL 4.2-10 .8 low Not Available [facility] (Lab) [address] [place], [address], 04/10/2024 11:36:45 04/10/20 24 04/10/2024 CBC/C OMPLE TE BLD COUNT W/DIF F red blood cells 4.09 x10'6 /uL 3.80-5 .20 Not Available [facility] (Lab) [address] [place], [address], 04/10/2024 11:36:45 04/10/20 24 04/10/2024 CBC/C OMPLE TE BLD COUNT W/DIF F hemoglobin 12.0 g/dL 12.0-1 5.6 Not Available [facility] (Lab) [address] [place], [address], 04/10/2024 11:36:45 04/10/20 24 04/10/2024 CBC/C OMPLE TE BLD COUNT W/DIF F hematocrit 36.3 % 35.7-4 5.7 Not Available [facility] (Lab) [address] [place], [address], 04/10/2024 11:36:45 04/10/20 24 04/10/2024 CBC/C OMPLE TE BLD COUNT W/DIF F mean red cell volume 88.8 fL 82.0-9 9.0 Not Available [facility] (Lab) [address] [place], [address], 04/10/2024 11:36:45 04/10/20 24 04/10/2024 CBC/C OMPLE TE BLD COUNT W/DIF F mean red cell hemoglobin 29.3 pg 27.0-3 3.0 Not Available [facility] (Lab) [address] [place], [address], 04/10/2024 11:36:45 04/10/20 24 04/10/2024 CBC/C OMPLE TE BLD COUNT W/DIF F mean RBC HGB concentratio n 33.1 g/dL 31.0-3 6.0 Not Available [facility] (Lab) [address] [place], [address], 04/10/2024 11:36:45 04/10/20 24 04/10/2024 CBC/C OMPLE TE BLD COUNT W/DIF F red cell distribution width 13.1 % 11.8-1 5.5 Not Available [facility] (Lab) [address] [place], [address], 04/10/2024 11:36:45 04/10/20 24 04/10/2024 CBC/C OMPLE TE BLD COUNT W/DIF F platelets 288 x10'3 /uL 150-40 0 Not Available [facility] (Lab) [address] [place], [address], 04/10/2024 11:36:45 04/10/20 24 04/10/2024 CBC/C OMPLE TE BLD COUNT W/DIF F mean platelet volume 10.5 fL 9.0-12 .4 Not Available [facility] (Lab) [address] [place], [address], 04/10/2024 11:36:45 04/10/20 24 04/10/2024 CBC/C OMPLE TE BLD COUNT W/DIF F neutrophils 42.1 % 39.0-7 2.0 Not Available [facility] (Lab) [address] [place], [address], 04/10/2024 11:36:45 04/10/20 24 04/10/2024 CBC/C OMPLE TE BLD COUNT W/DIF F lymphocytes 43.7 % 16.0-4 7.0 Not Available [facility] (Lab) [address] [place], [address], 04/10/2024 11:36:45 04/10/20 24 04/10/2024 CBC/C OMPLE TE BLD COUNT W/DIF F monocytes 10.7 % 5.0-12 .0 Not Available [facility] (Lab) [address] [place], [address], 04/10/2024 11:36:45 04/10/20 24 04/10/2024 CBC/C OMPLE TE BLD COUNT W/DIF F eosinophils 2.4 % 1.0-7. 0 Not Available [facility] (Lab) [address] [place], [address], 04/10/2024 11:36:45 04/10/20 24 04/10/2024 CBC/C OMPLE TE BLD COUNT W/DIF F basophils 0.8 % 0.0-2. 0 Not Available [facility] (Lab) [address] [place], [address], 04/10/2024 11:36:45 04/10/20 24 04/10/2024 CBC/C OMPLE TE BLD COUNT W/DIF F immature granulocytes 0.3 % 0.00-0 .50 Not Available [facility] (Lab) [address] [place], [address], 04/10/2024 11:36:45 04/10/20 24 04/10/2024 CBC/C OMPLE TE BLD COUNT W/DIF F neutrophils, absolute count 1.58 x10'3 /uL 1.5-8. 0 Not Available [facility] (Lab) [address] [place], [address], 04/10/2024 11:36:45 04/10/20 24 04/10/2024 CBC/C OMPLE TE BLD COUNT W/DIF F lymphocytes, absolute count 1.64 x10'3 /uL 1.07-3 .43 Not Available [facility] (Lab) [address] [place], [address], 04/10/2024 11:36:45 04/10/20 24 04/10/2024 CBC/C OMPLE TE BLD COUNT W/DIF F monocytes, absolute count 0.40 x10'3 /uL 0.29-0 .99 Not Available [facility] (Lab) [address] [place], [address], 04/10/2024 11:36:45 04/10/20 24 04/10/2024 CBC/C OMPLE TE BLD COUNT W/DIF F eosinophils, absolute count 0.09 x10'3 /uL 0.02-0 .53 Not Available [facility] (Lab) [address] [place], [address], 04/10/2024 11:36:45 04/10/20 24 04/10/2024 CBC/C OMPLE TE BLD COUNT W/DIF F basophils, absolute count 0.03 x10'3 /uL 0.01-0 .08 Not Available [facility] (Lab) [address] [place], [address], 04/10/2024 11:36:45 04/10/20 24 04/10/2024 CBC/C OMPLE TE BLD COUNT W/DIF F immature granulocytes ,absolute 0.01 x10'3 /uL 0.00-0 .05 Not Available [facility] (Lab) [address] [place], [address], 04/10/2024 11:36:45 04/10/20 24 04/10/2024 CBC/C OMPLE TE BLD COUNT W/DIF F nucleated red blood cells 0.0 % -0 Not Available [facility] (Lab) [address] [place], [address], 04/10/2024 11:36:45 04/10/20 24 04/10/2024 CBC/C OMPLE TE BLD COUNT W/DIF F NRBC# 0.00 x10'3 /uL Not Available [facility] (Lab) [address] [place], [address], 04/10/2024 11:36:45 04/10/20 24 04/10/2024 LIPID PANEL cholesterol 163 mg/dL 140-19 9 NIH COOKIE NSUS RECOM MENDA TION FOR DRU STERO L: ADULT CHILD LOW RISK: <200 <170 BORDE RLINE : <200- 239 ----- HIGH RISK: >240 >200 Not Available [facility] (Lab) [address] [place], [address], 04/10/2024 11:55:50 04/10/20 24 04/10/2024 LIPID PANEL triglyceride s 79 mg/dL 0-150 NIH COOKIE NSUS REPOR T RECOM MENDA TION FOR TRIGL YCERI KADEEM: ADULT CHILD LOW RISK: <150 ----- BODER LINE: 150-1 99 ----- HIGH RISK: >200 ----- Not Available [facility] (Lab) [address] [place], [address], 04/10/2024 11:55:50 04/10/20 24 04/10/2024 LIPID PANEL HDL cholesterol 74 mg/dL 40- Not Available [facility] (Lab) [address] [place], [address], 04/10/2024 11:55:50 04/10/20 24 04/10/2024 LIPID PANEL LDL cholesterol, calculated 73 mg/dL 0-130 NIH COOKIE NSUS REPOR T RECOM MENDA TIONS FOR LDL: ADULT CHILD LOW RISK <130 <110 (OPTI MAL LDL) <100 ----- BORDE RLINE : 130-1 59 ----- HIGH RISK: >160 >130 A TRIGL YCERI DE RESUL T >400 INVAL IDATE S THE CALCU LATIO N FOR LDL FRACT IONAT ION - THE LDL RESUL T WILL NOT BE REPOR BRIGIDA. Not Available [facility] (Lab) [address] [place], [address], 04/10/2024 11:55:50 04/10/20 24 04/10/2024 COMPR EHENS OLIVER METAB OLIC PANEL sodium 132 mmol/ L 137-14 5 low Not Available [facility] (Lab) [address] [place], [address], 04/10/2024 11:55:56 04/10/20 24 04/10/2024 COMPR EHENS OLIVER METAB OLIC PANEL potassium 4.4 mmol/ L 3.5-5. 1 Not Available [facility] (Lab) [address] [place], [address], 04/10/2024 11:55:56 04/10/20 24 04/10/2024 COMPR EHENS OLIVER METAB OLIC PANEL chloride 102 mmol/ L 98-107 Not Available [facility] (Lab) [address] [place], [address], 04/10/2024 11:55:56 04/10/20 24 04/10/2024 COMPR EHENS OLIVER METAB OLIC PANEL carbon dioxide 30 mmol/ L 22-30 Not Available [facility] (Lab) [address] [place], [address], 04/10/2024 11:55:56 04/10/20 24 04/10/2024 COMPR EHENS OLIVER METAB OLIC PANEL anion gap 4.4 mmol/ L 14- low Not Available [facility] (Lab) [address] [place], [address], 04/10/2024 11:55:56 04/10/20 24 04/10/2024 COMPR EHENS OLIVER METAB OLIC PANEL glucose 93 mg/dL 70-99 Not Available [facility] (Lab) [address] [place], [address], 04/10/2024 11:55:56 04/10/20 24 04/10/2024 COMPR EHENS OLIVER METAB OLIC PANEL BUN 11 mg/dL 8-19 Not Available [facility] (Lab) [address] [place], [address], 04/10/2024 11:55:56 04/10/20 24 04/10/2024 COMPR EHENS OLIVER METAB OLIC PANEL creatinine 0.73 mg/dL 0.66-1 .25 Not Available [facility] (Lab) [address] [place], [address], 04/10/2024 11:55:56 04/10/20 24 04/10/2024 COMPR EHENS OLIVER METAB OLIC PANEL GFR >60 Refer ence Range : [facility] ge GFR Healt hy Adult : >60 mL/mi n/1.7 3 m2 Chron ic Kidne y Disea se: 15-60 mL/mi n/1.7 3 m2 Kidne y Failu re: <15/m L/min /1.73 m2 www.n iddk. nih.g ov The MDRD study equat ion has not been valid ated in child chuyita <18 years of age; pregn ant women ; the elder ly >85 years of age; or in some racia l or ethni c subgr oups, such as Hispa nics. Outsi de the valid ated jazmyne eters , estim ated GFR is less accur ate, requi ring clini kristin judgm ent on a case- by-ca se basis . Clini kristin inter preta tion for other races and ages must be made by the clini norman. The MDRD study equat ion has not been valid ated for the evalu ation of serum creat inine relat ed to nutri pierce l statu s or medic ation usage . For perso ns <18 years of age, a pedia tric GFR calcu lator is avail able on the [facility] websi te: https ://ww w.kid deb.o rg/pr ofess ional s/kdo qi/gf r_cal culat or Not Available [facility] (Lab) [address] [place], [address], 04/10/2024 11:55:56 04/10/20 24 04/10/2024 COMPR EHENS OLIVER METAB OLIC PANEL alkaline phosphatase 43 U/L 38-126 Not Available [facility] (Lab) [address] [place], [address], 04/10/2024 11:55:56 04/10/20 24 04/10/2024 COMPR EHENS OLIVER METAB OLIC PANEL alanine aminotransfe rase 19 U/L 0-35 Not Available [facility] (Lab) [address] [place], [address], 04/10/2024 11:55:56 04/10/20 24 04/10/2024 COMPR EHENS OLIVER METAB OLIC PANEL aspartate aminotransfe rase 27 U/L 15-37 Not Available [facility] (Lab) [address] [place], [address], 04/10/2024 11:55:56 04/10/20 24 04/10/2024 COMPR EHENS OLIVER METAB OLIC PANEL bilirubin, total 0.60 mg/dL 0.20-1 .30 Not Available [facility] (Lab) [address] [place], [address], 04/10/2024 11:55:56 04/10/20 24 04/10/2024 COMPR EHENS OLIVER METAB OLIC PANEL calcium 9.2 mg/dL 8.4-10 .2 Not Available [facility] (Lab) [address] [place], [address], 04/10/2024 11:55:56 04/10/20 24 04/10/2024 COMPR EHENS OLIVER METAB OLIC PANEL total protein 6.8 g/dL 6.3-8. 2 Not Available [facility] (Lab) [address] [place], [address], 04/10/2024 11:55:56 04/10/20 24 04/10/2024 COMPR EHENS OLIVER METAB OLIC PANEL albumin 4.4 g/dL 3.0-4. 4 Not Available [facility] (Lab) [address] [place], [address], 04/10/2024 11:55:56 04/10/20 24 04/10/2024 COMPR EHENS OLIVER METAB OLIC PANEL globulin 2.4 g/dL 2.6-4. 2 low Not Available [facility] (Lab) [address] [place], [address], 04/10/2024 11:55:56 04/10/20 24 04/10/2024 COMPR EHENS OLIVER METAB OLIC PANEL A/G ratio 1.8 ratio 1.0-2. 0 Not Available [facility] (Lab) [address] [place], [address], 04/10/2024 11:55:56 04/10/20 24 04/10/2024 VITAM IN D 25-HY DROXY [id number] 66.9 NG/mL 30-100 Vitam in D Statu s: Defic ient: <20 ng/mL Insuf ficie nt: 20-29 ng/mL Suffi cient : 30-10 0 ng/mL Not Available [facility] (Lab) [address] [place], [address], 04/10/2024 12:23:16 04/10/20 24 04/10/2024 T4 FREE free T4 1.26 NG/dL 0.78-2 .19 Not Available [facility] (Lab) [address] [place], [address], 04/10/2024 12:34:37 04/10/20 24 04/10/2024 TSH thyroid-stim ulating hormone 0.740 uIU/m L 0.465- 4.680 Not Available [facility] (Lab) [address] [place], [address], 04/10/2024 12:54:04 04/10/20 24 04/10/2024 HEPAT ITIS ACUTE PANEL hepatitis A IgM antibody NON-RE ACTIVE non-re active For sampl es repor brigida as Borde rline React oliver for HAV IgM, it is recom madan d a new speci men be obtai jag in 2 weeks and retes brigida. Not Available [facility] (Lab) [address] [place], [address], 04/10/2024 13:05:52 04/10/20 24 04/10/2024 HEPAT ITIS ACUTE PANEL hepatitis A virus signal/cutof 0.01 0.00-0 .79 Not Available [facility] (Lab) [address] [place], [address], 04/10/2024 13:05:52 04/10/20 24 04/10/2024 HEPAT ITIS ACUTE PANEL hepatitis B core IgM antibody NON-RE ACTIVE non-re active Not Available [facility] (Lab) [address] [place], [address], 04/10/2024 13:05:52 04/10/20 24 04/10/2024 HEPAT ITIS ACUTE PANEL HBV core IgM signal/cutof f 0.01 0.00-1 .10 Not Available [facility] (Lab) [address] [place], [address], 04/10/2024 13:05:52 04/10/20 24 04/10/2024 HEPAT ITIS ACUTE PANEL hepatitis B surface antigen NON-RE ACTIVE non-re active All speci mens react oliver for Hepat itis B Surfa ce Antig en will refle x to refer ral lab confi rmato ry testi ng. Not Available [facility] (Lab) [address] [place], [address], 04/10/2024 13:05:52 04/10/20 24 04/10/2024 HEPAT ITIS ACUTE PANEL HBV surf.antigen signal/cutof f 0.08 0.00-0 .99 Not Available [facility] (Lab) [address] [place], [address], 04/10/2024 13:05:52 04/10/20 24 04/10/2024 HEPAT ITIS ACUTE PANEL hepatitis C antibody NON-RE ACTIVE non-re active All speci mens react oliver for Hepat itis C Virus antib janett will refle x to PCR confi rmato ry testi ng. Pleas e allow 48-72 hours for resul ts. Not Available [facility] (Lab) [address] [place], [address], 04/10/2024 13:05:52 04/10/20 24 04/10/2024 HEPAT ITIS ACUTE PANEL hepatitis C virus signal/cutof 0.01 0.00-0 .99 Not Available [facility] (Lab) [address] [place], [address], 04/10/2024 13:05:52 05/08/20 24 05/08/2024 CBC/C OMPLE TE BLD COUNT W/DIF F white blood cells 3.9 x10'3 /uL 4.2-10 .8 low Not Available [facility] (Lab) [address] [place], [address], 05/08/2024 11:14:10 05/08/20 24 05/08/2024 CBC/C OMPLE TE BLD COUNT W/DIF F red blood cells 4.05 x10'6 /uL 3.80-5 .20 Not Available [facility] (Lab) [address] [place], [address], 05/08/2024 11:14:10 05/08/20 24 05/08/2024 CBC/C OMPLE TE BLD COUNT W/DIF F hemoglobin 12.3 g/dL 12.0-1 5.6 Not Available [facility] (Lab) [address] [place], [address], 05/08/2024 11:14:10 05/08/20 24 05/08/2024 CBC/C OMPLE TE BLD COUNT W/DIF F hematocrit 36.0 % 35.7-4 5.7 Not Available [facility] (Lab) [address] [place], [address], 05/08/2024 11:14:10 05/08/20 24 05/08/2024 CBC/C OMPLE TE BLD COUNT W/DIF F mean red cell volume 88.9 fL 82.0-9 9.0 Not Available [facility] (Lab) [address] [place], [address], 05/08/2024 11:14:10 05/08/20 24 05/08/2024 CBC/C OMPLE TE BLD COUNT W/DIF F mean red cell hemoglobin 30.4 pg 27.0-3 3.0 Not Available [facility] (Lab) [address] [place], [address], 05/08/2024 11:14:10 05/08/20 24 05/08/2024 CBC/C OMPLE TE BLD COUNT W/DIF F mean RBC HGB concentratio n 34.2 g/dL 31.0-3 6.0 Not Available [facility] (Lab) [address] [place], [address], 05/08/2024 11:14:10 05/08/20 24 05/08/2024 CBC/C OMPLE TE BLD COUNT W/DIF F red cell distribution width 13.2 % 11.8-1 5.5 Not Available [facility] (Lab) [address] [place], [address], 05/08/2024 11:14:10 05/08/20 24 05/08/2024 CBC/C OMPLE TE BLD COUNT W/DIF F platelets 300 x10'3 /uL 150-40 0 Not Available [facility] (Lab) [address] [place], [address], 05/08/2024 11:14:10 05/08/20 24 05/08/2024 CBC/C OMPLE TE BLD COUNT W/DIF F mean platelet volume 10.2 fL 9.0-12 .4 Not Available [facility] (Lab) [address] [place], [address], 05/08/2024 11:14:10 05/08/20 24 05/08/2024 CBC/C OMPLE TE BLD COUNT W/DIF F neutrophils 46.0 % 39.0-7 2.0 Not Available [facility] (Lab) [address] [place], [address], 05/08/2024 11:14:10 05/08/20 24 05/08/2024 CBC/C OMPLE TE BLD COUNT W/DIF F lymphocytes 39.2 % 16.0-4 7.0 Not Available [facility] (Lab) [address] [place], [address], 05/08/2024 11:14:10 05/08/20 24 05/08/2024 CBC/C OMPLE TE BLD COUNT W/DIF F monocytes 9.9 % 5.0-12 .0 Not Available [facility] (Lab) [address] [place], [address], 05/08/2024 11:14:10 05/08/20 24 05/08/2024 CBC/C OMPLE TE BLD COUNT W/DIF F eosinophils 3.9 % 1.0-7. 0 Not Available [facility] (Lab) [address] [place], [address], 05/08/2024 11:14:10 05/08/20 24 05/08/2024 CBC/C OMPLE TE BLD COUNT W/DIF F basophils 1.0 % 0.0-2. 0 Not Available [facility] (Lab) [address] [place], [address], 05/08/2024 11:14:10 05/08/20 24 05/08/2024 CBC/C OMPLE TE BLD COUNT W/DIF F immature granulocytes 0.0 % 0.00-0 .50 Not Available [facility] (Lab) [address] [place], [address], 05/08/2024 11:14:10 05/08/20 24 05/08/2024 CBC/C OMPLE TE BLD COUNT W/DIF F neutrophils, absolute count 1.77 x10'3 /uL 1.5-8. 0 Not Available [facility] (Lab) [address] [place], [address], 05/08/2024 11:14:10 05/08/20 24 05/08/2024 CBC/C OMPLE TE BLD COUNT W/DIF F lymphocytes, absolute count 1.51 x10'3 /uL 1.07-3 .43 Not Available [facility] (Lab) [address] [place], [address], 05/08/2024 11:14:10 05/08/20 24 05/08/2024 CBC/C OMPLE TE BLD COUNT W/DIF F monocytes, absolute count 0.38 x10'3 /uL 0.29-0 .99 Not Available [facility] (Lab) [address] [place], [address], 05/08/2024 11:14:10 05/08/20 24 05/08/2024 CBC/C OMPLE TE BLD COUNT W/DIF F eosinophils, absolute count 0.15 x10'3 /uL 0.02-0 .53 Not Available [facility] (Lab) [address] [place], [address], 05/08/2024 11:14:10 05/08/2005/08/2024 CBC/C OMPLE TE BLD COUNT W/DIF F basophils, absolute count 0.04 x10'3 /uL 0.01-0 .08 Not Available [facility] (Lab) [address] [place], [address], 05/08/2024 11:14:10 05/08/20 24 05/08/2024 CBC/C OMPLE TE BLD COUNT W/DIF F immature granulocytes ,absolute 0.00 x10'3 /uL 0.00-0 .05 Not Available [facility] (Lab) [address] [place], [address], 05/08/2024 11:14:10 05/08/2005/08/2024 CBC/C OMPLE TE BLD COUNT W/DIF F nucleated red blood cells 0.0 % -0 Not Available [facility] (Lab) [address] [place], [address], 05/08/2024 11:14:10 05/08/2005/08/2024 CBC/C OMPLE TE BLD COUNT W/DIF F NRBC# 0.00 x10'3 /uL Not Available [facility] (Lab) [address] [place], [address], 05/08/2024 11:14:10 07/24/20 24 07/24/2024 CBC/C OMPLE TE BLD COUNT W/DIF F white blood cells 3.6 x10'3 /uL 4.2-10 .8 low Not Available [facility] (Lab) [address] [place], [address], 07/24/2024 11:43:01 07/24/20 24 07/24/2024 CBC/C OMPLE TE BLD COUNT W/DIF F red blood cells 3.97 x10'6 /uL 3.80-5 .20 Not Available [facility] (Lab) [address] [place], [address], 07/24/2024 11:43:01 07/24/20 24 07/24/2024 CBC/C OMPLE TE BLD COUNT W/DIF F hemoglobin 12.0 g/dL 12.0-1 5.6 Not Available [facility] (Lab) [address] [place], [address], 07/24/2024 11:43:01 07/24/20 24 07/24/2024 CBC/C OMPLE TE BLD COUNT W/DIF F hematocrit 36.3 % 35.7-4 5.7 Not Available [facility] (Lab) [address] [place], [address], 07/24/2024 11:43:01 07/24/20 24 07/24/2024 CBC/C OMPLE TE BLD COUNT W/DIF F mean red cell volume 91.4 fL 82.0-9 9.0 Not Available [facility] (Lab) [address] [place], [address], 07/24/2024 11:43:01 07/24/20 24 07/24/2024 CBC/C OMPLE TE BLD COUNT W/DIF F mean red cell hemoglobin 30.2 pg 27.0-3 3.0 Not Available [facility] (Lab) [address] [place], [address], 07/24/2024 11:43:01 07/24/20 24 07/24/2024 CBC/C OMPLE TE BLD COUNT W/DIF F mean RBC HGB concentratio n 33.1 g/dL 31.0-3 6.0 Not Available [facility] (Lab) [address] [place], [address], 07/24/2024 11:43:01 07/24/20 24 07/24/2024 CBC/C OMPLE TE BLD COUNT W/DIF F red cell distribution width 13.4 % 11.8-1 5.5 Not Available [facility] (Lab) [address] [place], [address], 07/24/2024 11:43:01 07/24/20 24 07/24/2024 CBC/C OMPLE TE BLD COUNT W/DIF F platelets 305 x10'3 /uL 150-40 0 Not Available [facility] (Lab) [address] [place], [address], 07/24/2024 11:43:01 07/24/20 24 07/24/2024 CBC/C OMPLE TE BLD COUNT W/DIF F mean platelet volume 10.1 fL 9.0-12 .4 Not Available [facility] (Lab) [address] [place], [address], 07/24/2024 11:43:01 07/24/20 24 07/24/2024 CBC/C OMPLE TE BLD COUNT W/DIF F neutrophils 40.7 % 39.0-7 2.0 Not Available [facility] (Lab) [address] [place], [address], 07/24/2024 11:43:01 07/24/20 24 07/24/2024 CBC/C OMPLE TE BLD COUNT W/DIF F lymphocytes 45.3 % 16.0-4 7.0 Not Available [facility] (Lab) [address] [place], [address], 07/24/2024 11:43:01 07/24/20 24 07/24/2024 CBC/C OMPLE TE BLD COUNT W/DIF F monocytes 10.1 % 5.0-12 .0 Not Available [facility] (Lab) [address] [place], [address], 07/24/2024 11:43:01 07/24/20 24 07/24/2024 CBC/C OMPLE TE BLD COUNT W/DIF F eosinophils 3.1 % 1.0-7. 0 Not Available [facility] (Lab) [address] [place], [address], 07/24/2024 11:43:01 07/24/20 24 07/24/2024 CBC/C OMPLE TE BLD COUNT W/DIF F basophils 0.8 % 0.0-2. 0 Not Available [facility] (Lab) [address] [place], [address], 07/24/2024 11:43:01 07/24/20 24 07/24/2024 CBC/C OMPLE TE BLD COUNT W/DIF F immature granulocytes 0.0 % 0.00-0 .50 Not Available [facility] (Lab) [address] [place], [address], 07/24/2024 11:43:01 07/24/20 24 07/24/2024 CBC/C OMPLE TE BLD COUNT W/DIF F neutrophils, absolute count 1.46 x10'3 /uL 1.5-8. 0 low Not Available [facility] (Lab) [address] [place], [address], 07/24/2024 11:43:01 07/24/20 24 07/24/2024 CBC/C OMPLE TE BLD COUNT W/DIF F lymphocytes, absolute count 1.62 x10'3 /uL 1.07-3 .43 Not Available [facility] (Lab) [address] [place], [address], 07/24/2024 11:43:01 07/24/20 24 07/24/2024 CBC/C OMPLE TE BLD COUNT W/DIF F monocytes, absolute count 0.36 x10'3 /uL 0.29-0 .99 Not Available [facility] (Lab) [address] [place], [address], 07/24/2024 11:43:01 07/24/20 24 07/24/2024 CBC/C OMPLE TE BLD COUNT W/DIF F eosinophils, absolute count 0.11 x10'3 /uL 0.02-0 .53 Not Available [facility] (Lab) [address] [place], [address], 07/24/2024 11:43:01 07/24/20 24 07/24/2024 CBC/C OMPLE TE BLD COUNT W/DIF F basophils, absolute count 0.03 x10'3 /uL 0.01-0 .08 Not Available [facility] (Lab) [address] [place], [address], 07/24/2024 11:43:01 07/24/20 24 07/24/2024 CBC/C OMPLE TE BLD COUNT W/DIF F immature granulocytes ,absolute 0.00 x10'3 /uL 0.00-0 .05 Not Available [facility] (Lab) [address] [place], [address], 07/24/2024 11:43:01 07/24/20 24 07/24/2024 CBC/C OMPLE TE BLD COUNT W/DIF F nucleated red blood cells 0.0 % -0 Not Available [facility] (Lab) [address] [place], [address], 07/24/2024 11:43:01 07/24/20 24 07/24/2024 CBC/C OMPLE TE BLD COUNT W/DIF F NRBC# 0.00 x10'3 /uL Not Available [facility] (Lab) [address] [place], [address], 07/24/2024 11:43:01 07/24/20 24 07/24/2024 LIPID PANEL cholesterol 187 mg/dL 140-19 9 NIH COOKIE NSUS RECOM MENDA TION FOR DRU STERO L: ADULT CHILD LOW RISK: <200 <170 BORDE RLINE : <200- 239 ----- HIGH RISK: >240 >200 Not Available [facility] (Lab) [address] [place], [address], 07/24/2024 12:21:09 07/24/20 24 07/24/2024 LIPID PANEL triglyceride s 91 mg/dL 0-150 NIH COOKIE NSUS REPOR T RECOM MENDA TION FOR TRIGL YCERI KADEEM: ADULT CHILD LOW RISK: <150 ----- BODER LINE: 150-1 99 ----- HIGH RISK: >200 ----- Not Available [facility] (Lab) [address] [place], [address], 07/24/2024 12:21:09 07/24/20 24 07/24/2024 LIPID PANEL HDL cholesterol 83 mg/dL 40- Not Available [facility] (Lab) [address] [place], [address], 07/24/2024 12:21:09 07/24/20 24 07/24/2024 LIPID PANEL LDL cholesterol, calculated 86 mg/dL 0-130 NIH COOKIE NSUS REPOR T RECOM MENDA TIONS FOR LDL: ADULT CHILD LOW RISK <130 <110 (OPTI MAL LDL) <100 ----- BORDE RLINE : 130-1 59 ----- HIGH RISK: >160 >130 A TRIGL YCERI DE RESUL T >400 INVAL IDATE S THE CALCU LATIO N FOR LDL FRACT IONAT ION - THE LDL RESUL T WILL NOT BE REPOR BRIGIDA. Not Available [facility] (Lab) [address] [place], [address], 07/24/2024 12:21:09 07/24/20 24 07/24/2024 COMPR EHENS OLIVER METAB OLIC PANEL sodium 136 mmol/ L 137-14 5 low Not Available [facility] (Lab) [address] [place], [address], 07/24/2024 12:21:14 07/24/20 24 07/24/2024 COMPR EHENS OLIVER METAB OLIC PANEL potassium 4.6 mmol/ L 3.5-5. 1 Not Available [facility] (Lab) [address] [place], [address], 07/24/2024 12:21:14 07/24/20 24 07/24/2024 COMPR EHENS OLIVER METAB OLIC PANEL chloride 102 mmol/ L 98-107 Not Available [facility] (Lab) [address] [place], [address], 07/24/2024 12:21:14 07/24/20 24 07/24/2024 COMPR EHENS OLIVER METAB OLIC PANEL carbon dioxide 31 mmol/ L 22-30 high Not Available [facility] (Lab) [address] [place], [address], 07/24/2024 12:21:14 07/24/20 24 07/24/2024 COMPR EHENS OLIVER METAB OLIC PANEL anion gap 7.6 mmol/ L 14-22 low Not Available [facility] (Lab) [address] [place], [address], 07/24/2024 12:21:14 07/24/20 24 07/24/2024 COMPR EHENS OLIVER METAB OLIC PANEL glucose 94 mg/dL 70-99 Not Available [facility] (Lab) [address] [place], [address], 07/24/2024 12:21:14 07/24/20 24 07/24/2024 COMPR EHENS OLIVER METAB OLIC PANEL BUN 12 mg/dL 8-19 Not Available [facility] (Lab) [address] [place], [address], 07/24/2024 12:21:14 07/24/20 24 07/24/2024 COMPR EHENS OLIVER METAB OLIC PANEL creatinine 0.77 mg/dL 0.66-1 .25 Not Available [facility] (Lab) [address] [place], [address], 07/24/2024 12:21:14 07/24/20 24 07/24/2024 COMPR EHENS OLIVER METAB OLIC PANEL GFR >60 Refer ence Range : [place] ge GFR Healt hy Adult : >60 mL/mi n/1.7 3 m2 Chron ic Kidne y Disea se: 15-60 mL/mi n/1.7 3 m2 Kidne y Failu re: <15/m L/min /1.73 m2 www.n iddk. nih.g ov The MDRD study equat ion has not been valid ated in child chuyita <18 years of age; pregn ant women ; the elder ly >85 years of age; or in some racia l or ethni c subgr oups, such as ca nics. Outsi de the valid ated jazmyne eters , estim ated GFR is less accur ate, requi ring clini kristin judgm ent on a case- by-ca se basis . Clini kristin inter preta tion for other races and ages must be made by the clini norman. The MDRD study equat ion has not been valid ated for the evalu ation of serum creat inine relat ed to nutri pierce l statu s or medic ation usage . For perso ns <18 years of age, a pedia tric GFR calcu lator is avail able on the NKF websi te: https ://dottie w.juan boyd.o rg/pr parisaess ional s/kdo qi/gf r_cal culat or Not Available [facility] (Lab) [address] [place], [address], 07/24/2024 12:21:14 07/24/20 24 07/24/2024 COMPR EHENS OLIVER METAB OLIC PANEL alkaline phosphatase 45 U/L 38-126 Not Available [facility] (Lab) [address] [place], [address], 07/24/2024 12:21:14 07/24/20 24 07/24/2024 COMPR EHENS OLIVER METAB OLIC PANEL alanine aminotransfe rase 20 U/L 0-35 Not Available [facility] (Lab) [address] [place], [address], 07/24/2024 12:21:14 07/24/2007/24/2024 COMPR EHENS OLIVER METAB OLIC PANEL aspartate aminotransfe rase 28 U/L 15-37 Not Available [facility] (Lab) [address] [place], [address], 07/24/2024 12:21:14 07/24/2007/24/2024 COMPR EHENS OLIVER METAB OLIC PANEL bilirubin, total 0.50 mg/dL 0.20-1 .30 Not Available [facility] (Lab) [address] [place], [address], 07/24/2024 12:21:14 07/24/20 24 07/24/2024 COMPR EHENS OLIVER METAB OLIC PANEL calcium 9.2 mg/dL 8.4-10 .2 Not Available [facility] (Lab) [address] [place], [address], 07/24/2024 12:21:14 07/24/2007/24/2024 COMPR EHENS OLIVER METAB OLIC PANEL total protein 6.6 g/dL 6.3-8. 2 Not Available [facility] (Lab) [address] [place], [address], 07/24/2024 12:21:14 07/24/2007/24/2024 COMPR EHENS OLIVER METAB OLIC PANEL albumin 4.2 g/dL 3.0-4. 4 Not Available [facility] (Lab) [address] [place], [address], 07/24/2024 12:21:14 07/24/20 24 07/24/2024 COMPR EHENS OLIVER METAB OLIC PANEL globulin 2.4 g/dL 2.6-4. 2 low Not Available [facility] (Lab) [address] [place], [address], 07/24/2024 12:21:14 07/24/20 24 07/24/2024 COMPR EHENS OLIVER METAB OLIC PANEL A/G ratio 1.8 ratio 1.0-2. 0 Not Available [facility] (Lab) [address] [place], [address], 07/24/2024 12:21:14 07/24/20 24 07/24/2024 TSH thyroid-stim ulating hormone 0.466 uIU/m L 0.465- 4.680 Not Available [facility] (Lab) [address] [place], [address], 07/24/2024 12:37:38 07/24/20 24 07/24/2024 VITAM IN D 25-HY DROXY [id number] 57.1 NG/mL 30-100 Vitam in D Statu s: Defic ient: <20 ng/mL Insuf ficie nt: 20-29 ng/mL Suffi cient : 30-10 0 ng/mL Not Available [facility] (Lab) [address] [place], [address], 07/24/2024 13:35:56 07/24/20 24 07/24/2024 T4 FREE free T4 1.38 NG/dL 0.78-2 .19 Not Available [facility] (Lab) [address] [place], [address], 07/24/2024 18:50:33 09/06/2004/19/2023 DEXA, axial skele ton No observ ation record ed. BARCODE Not Available 2022 17:02:06 01/12/20 24 01/12/2024 US, abdom en, limit ed [facility] [place] [address] [place] [address] Patien t Name: JESSICA CHRISTIE Access ion #: [id number] Sex: F : 1955 4 Dictat ed By: Naty Navarro Attend ing Physic he: DERRELL FIELD Orderi ng Physic he: DERRELL FIELD Exam Date: 2023 07:23 AM Exam Name: US ABDOME N SINGLE ORGAN Admitt ing Diagno sis(es ): INDICA TION: elevat ed lfts TECHNI QUE: Multip le real-t quinten sonogr aphic images were obtain ed of the right upper quadra nt. COMPAR EDGAR: none. FINDIN GS: The liver demons trates homoge nous echote xture withou t focal mass lesion s. The liver measur es measur es 13.6 cm. Gallbl adder: Unrema rkable . The gallbl adder wall measur es 0.2 cm and is within normal limits . There is no intrah epatic or extrah epatic ductal dilata tion. The common duct measur es 0.4 cm. The right kidney measur es 9.4 cm. There is no hydron ephros is. The pancre as is not well visual ized due to overly ing bowel gas. IMPRES JAY: 1. Unrema rkable right upper quadra nt sonogr am. Electr onical ly Signed by: Naty Navarro at 2023 15:36: 34 PM Page 1 [email or web address] [facility] (Imaging) [address] [place], [address], 05/02/2024 15:10:11 01/14/20 24 10/27/2023 colon oscop y scree hyacinth (PROC ) No observ ation record ed. BARCODE Alexis Morales MD [address], [place], [address], 01/14/2024 11:50:06 01/24/20 24 MAMMO , scree hyacinth, digit al, bilat eral [facility] [address] [place] [address] Patien t Name: JESSICA CHRISTIE Access ion #: [id number] Sex: F : 1955 5 Dictat ed By: Naty Navarro Attend ing Physic he: DERRELL FIELD Orderi ng Physic he: DERRELL FIELD Exam Date: 2023 08:46 AM Exam Name: MG DIGITA L TAHMINA BILAT SCREEN Admitt ing Diagno sis(es ): CLINIC AL HISTOR Y: Screen ing COMPAR EDGAR STUDY: 10/24/19 21 TECHNI QUE: Using a full field digita l 2D mammog loc unit CC and MLO views of both breast s are perfor med. FINDIN GS: BREAST COMPOS ITION: The bilate ral breast s are hetero geneou sly dense, which may obscur e small masses . No suspic ious masses , maggie ectura l distor tion, asymme tries or suspic ious calcif icatio ns in both breast s. IMPRES JAY: No eviden ce of malign soo. Recomm end annual mammog rola. BIRADS : 1 - Negati ve Electr onical ly Signed by: Naty Navarro at 2023 11:20: 29 AM Page 1 [email or web address] [facility] (Imaging) [address] [place], [address], 05/02/2024 15:10:11 01/24/20 24 01/24/2024 MAMMO , scree hyacinth, digit al, bilat eral No observ ation record ed. [facility] [address] [place], [address], 05/02/2024 15:10:12 07/24/20 24 07/24/2024 imagi ng/di davidos tic resul t No observ ation record ed. [address], [place], [address], 07/24/2024 18:29:03 Result Notes None recorded. Problems Name Problem SNOMED Code Status Onset Date Resolution Date Notes Provider Name and Address Organization Details Recorded Time Hypercholeste rolemia 22677488 Active Not Available [facility] 3 06:00:35 Impacted cerumen 49933057 Active Not Available [facility] 3 06:00:35 Anemia 718993396 Active Not Available [facility] 3 06:00:35 Knee pain Active Not Available [facility] 3 06:00:35 Osteoporosis 44332993 Active Not Available [facility] 3 06:00:35 Hypothyroidis m 74806016 Active 2022 Fam stuart MD [address], [address], [place], [address] , [employer] 3 08:43:41 Hyperlipidemi a 61915332 Active 2022 Fam stuart MD [address], [facility] [address], [place], [address] , [employer] [facility] 3 08:43:46 Leukopenia 61279865 Active 2022 Fam stuart MD [address], [address], [place], [address] , [employer] 3 08:43:56 Liver enzymes level above reference range 480347186 Active 2023 Hermelinda Martínez MA null, [employer] [facility] [employer] 4 15:56:38 Increased liver function 17187170 Active 2023 Fam stuart MD [address] [facility], [facility] [address], [place], [address] , [facility] [employer] 4 16:08:34 COVID-19 445751335 Active 2023 Fam stuart MD [address] [facility], [facility] [address], [place], [address] , [employer] 4 13:36:02 Upper respiratory infection 09708433 Active 2023 Hermelinda Martínez MA null, [employer] 4 10:42:41 Problem Notes None recorded. Procedures Surgical History Date Name Laterality Status Provider Name and Address Organization Details Recorded Time 01/10/20 Medicare Wellness CPT Code, subsequent completed Wilber Zelaya LPN [employer] [facility] [employer] 01/10/2024 09:59:13 03/19/20 Most Recent Bone Density completed Not Available [facility] 11/18/2022 05:55:06 Appendectomy completed YOHANA Hollins [employer] [facility] [employer] [facility] 09/06/2023 10:39:18 repair of small intestine completed YOHANA Hollins [employer] [facility] [employer] 09/06/2023 10:40:02 Imaging Results Imaging Date Name Status LastModified by Organiz ation Details LastModified Time 04/19/2023 DEXA, axial skeleton completed BAR[facility] Information not available 09/06/2023 17:02:06 01/12/2024 US, abdomen, limited completed [facility] (Imaging) [address] [place], [address], 05/02/2024 15:10:11 10/27/2023 colonoscopy screening (PROC) active BARCODE Alexis Morales MD [address], [place], [address], 01/14/2024 11:50:06 01/24/2024 MAMMO, screening, digital, bilateral completed [email or web address] [facility] (Imaging) [address] [place], [address], 05/02/2024 15:10:11 01/24/2024 MAMMO, screening, digital, bilateral completed [email or web address] [facility] [address], [place], [address], 05/02/2024 15:10:12 07/24/2024 imaging/diagnos tic result active [facility] [address] [facility] [address], [place], [address], 07/24/2024 18:29:03 Procedure Notes None recorded. Medical Equipment None Reported. Allergies Allergen ID Allergen Name Allergen Category Reaction Reaction Severity Criticality Documentation Date Start Date Code Code System Note Provider Name and Address Organization Details Recorded Time 45190 morphine medicatio n vomiting Not available Not available 11/18/2022 7052 RxNorm Not Available [facility] 3 06:07:56 85237 codeine medicatio n Not available Not available Not available 11/18/2022 2670 RxNorm Not Available [facility] 3 06:07:56 Medications Name Sig Start Date Stop Date Status Note LastModified by Organization Details LastModified Time amoxicill in 500 mg capsule active Not Available Not Available Not Available azithromy sushila 250 mg tablet ZPK 07/31 completed Not Available Not Available Not Available ofloxacin 0.3 % eye drops 07/31 completed Not Available Not Available Not Available hydrocodo ne 5 mg-acetam inophen 325 mg tablet active Not Available Not Available Not Available alendrona te 70 mg tablet TAKE 1 TABLET BY MOUTH ONCE A WEEK WITH A FULL GLASS OF WATER. STAY UPRIGHT X 30 MINUTES 09/06 completed Not Available Not Available Not Available peg-elect rolyte solution 420 gram oral solution MIX AND DRINK UTD 03/29 completed Not Available Not Available Not Available aspirin 81 mg tablet,de layed release Take 1 tablet every day by oral route. 09/06 completed Not Available Not Available Not Available tramadol 50 mg tablet active Not Available Not Available Not Available amoxicill in 500 mg tablet TAKE 1 TABLET BY MOUTH THREE TIMES DAILY UNTIL GONE 04/17 completed Not Available Not Available Not Available ketorolac 10 mg tablet active Not Available Not Available Not Available levothyro xine 75 mcg tablet TAKE 1 TABLET BY MOUTH EVERY DAY. EXCEPT 1/2 TABLET ON WEDNESDAY AND Y active Not Available Not Available No t Available levothyro xine 50 mcg tablet TK 1 T PO QD AC active Not Available Not Available No t Available cephalexi n 500 mg capsule active Not Available Not Available Not Available simvastat in 20 mg tablet TAKE 1 TABLET BY MOUTH EVERY DAY 2023 active Not Available Not Available Not Avai lable etodolac 400 mg tablet Take 1 tablet twice a day by oral route for 30 days. active Not Available Not Available No t Available methylpre dnisolone 4 mg tablets in a dose pack FOLLOW PACKAGE DIRECTIO NS 07/31 completed Not Available Not Available Not Available ondansetr on 4 mg disintegr ating tablet 11/11 completed Not Available Not Available Not Available fluticaso ne propionat e 50 mcg/actua tion nasal spray,[employer] U 1 SPR NASALLY QD 02/21 completed Not Available Not Available Not Available loratadin e 10 mg tablet TK 1 T PO QD PRN FOR 30 DAYS 09/21 completed Not Available Not Available Not Available amoxicill in 875 mg-potass ium clavulana te 125 mg tablet TK 1 T PO Q 12 H FOR 7 DAYS 02/21 completed Not Available Not Available Not Available Crestor 5 mg tablet Take 1 tablet every day by oral route. active Not Available Not Available No t Available vitamin B complex 2,000uni ts twice a week 2019 active [employer] started in Oct 2019 Not Available Not Available Not Available Centrum Silver 1 tablet daily 2018 active Not Available Not Available Not Avai lable Metamucil 2 Times Daily 2019 active Not Available Not Available Not Avai lable Zostavax (PF) 19,400 unit/0.65 mL subcutane ous suspensio n ADM 0.65ML SC UTD 11/01 completed Not Available Not Available Not Available M-M-R II (PF) 1,000-12, 500 TCID50/0. 5 mL subcutane ous solution ADM 0.5ML SC UTD 09/25 completed Not Available Not Available Not Available Prevnar 13 (PF) 0.5 mL intramusc ular syringe ADM 0.5ML IM UTD 11/01 completed Not Available Not Available Not Available Prolia 60 mg/mL subcutane ous syringe Take into doctor office. Inject 1 ML EVERY 6 MONTHS by subcutan eous route. 2024 active Not Available Not Available Not Avai lable Caltrate 1200mg 2 daily 2017 active Not Available Not Available Not Avai lable Fluvirin (PF) 45 mcg(15 mcg x3)/0.5 mL intramusc ular syringe ADM 0.5ML IM UTD 11/01 completed Not Available Not Available Not Available Fluzone Quad (P F) 60 mcg(15 mcgx4)/0. 5 mL intramusc ular syringe ADM 0.5ML IM UTD 09/21 completed Not Available Not Available Not Available Evenity 01/09 completed Not Available Not Available Not Available Afluria Qd 2018- (36 mos up)(PF)60 mcg (15 mcg x4)/0.5 mL IM syringe ADM 0.5ML IM UTD 09/25 completed Not Available Not Available Not Available Afluria Qd 2019- (36 mos up)(PF)60 mcg (15 mcg x4)/0.5 mL IM syringe ADM 0.5ML IM UTD 09/23 completed Not Available Not Available Not Available Paxlovid 300 mg (150 mg x 2)-100 mg tablets in a dose pack FOLLOW PACKAGE DIRECTIO NS 07/31 completed Not Available Not Available Not Available Vitals Date Recorded Body mass index (BMI) Body height Oxygen saturation Oxygen saturation in Arterial blood by Pulse oximetry Heart rate Body temperature Body weight Systolic blood pressure Diastolic blood pressure Provider Name and Address Organization Details Last Updated DateTime 1 21.1 kg/m2 152.4 cm 98 % 98 % 71 /min 96.5 [degF] 58141.9 8 g 110 mm[Hg] 70 mm[Hg] Not Available [employer] 3 05:58:55 Date Recorded Body height Body mass index (BMI) Body weight Body temperature Heart rate Systolic blood pressure Diastolic blood pressure Provider Name and Address Organization Details Last Updated DateTime 3 152.4 cm 21.1 kg/m2 21715.9 8 g 97.4 [degF] 60 /min 110 mm[Hg] 66 mm[Hg] YOHANA Hollins [facility] [employer] [facility] 3 10:43:05 Date Recorded Body height Body mass index (BMI) Body weight Body temperature Heart rate Systolic blood pressure Diastolic blood pressure Provider Name and Address Organization Details Last Updated DateTime 4 152.4 cm 21.9 kg/m2 36983.3 5 g 97.2 [degF] 62 /min 116 mm[Hg] 64 mm[Hg] YOHANA Hollins [facility] [employer] [facility] 4 09:43:14 Date Recorded Pain severity - 0-10 verbal numeric rating [Score] - Reported Provider Name and Address Organization Details Last Updated DateTime 01/10/2024 0 Wilber Zelaya LPN [facility] [employer] [facility] 01/10/2024 09:59:30 Date Recorded Body height Body mass index (BMI) Body weight Body temperature Heart rate Systolic blood pressure Diastolic blood pressure Provider Name and Address Organization Details Last Updated DateTime 4 152.4 cm 21.9 kg/m2 10589.3 5 g 97.4 [degF] 60 /min 122 mm[Hg] 76 mm[Hg] YOHANA Hollins [facility] [employer] [facility] 4 09:55:32 Date Recorded Body height Body mass index (BMI) Body weight Body temperature Heart rate Respiratory rate Oxygen saturation Oxygen saturation in Arterial blood by Pulse oximetry Systolic blood pressure Diastolic blood pressure Provider Name and Address Organization Details Last Updated DateTime 4 152.4 cm 21.1 kg/m2 31030.9 8 g 97.5 [degF] 64 /min 16 /min 98 % 98 % 126 mm[Hg] 64 mm[Hg] Wilber Zelaya LPN [facility] [employer] [facility] 4 10:57:27 Social History Question Answer Notes LastModified by Organization Details LastModified Time Tobacco Smoking Status Former Smoker quit 2005 YOHANA Hollins [facility] [employer] [facility] 09/06/2023 10:36:37 Do You Have An Advance Directive? No Information not available 09/06/2023 What Is Your Level Of Alcohol Consumption? Occasional Information not available 09/06/2023 Are You Blind Or Do You Have Difficulty Seeing? No Information not available 09/06/2023 What Is Your Level Of Caffeine Consumption? Moderate Information not available 09/06/2023 In The 14 Days Before Symptom Onset, Have You Had Close Contact With A Laboratory-conf irmed COVID-19 While That Case Was Ill? No [id number] Information not available 11/18/2022 In The 14 Days Before Symptom Onset, Have You Had Close Contact With A Person Who Is Under Investigation For COVID-19 While That Person Was Ill? No [id number] Information not available 11/18/2022 Are You Currently Employed? No [email or web address] Information not available 01/10/2024 Are You Deaf Or Do You Have Serious Difficulty Hearing? No Information not available 09/06/2023 What Type Of Diet Are You Following? REGULAR Information not available 09/06/2023 What Is The Highest Grade Or Level Of School You Have Completed Or The Highest Degree You Have Received? [id number] Information not available 09/06/2023 What Is Your Occupation? Retired [email or web address] Information not available 01/10/2024 Have There Been Any Changes To Your Family Or Social Situation? No [email or web address] Information not available 01/10/2024 What Is The Fluoride Status Of Your Home? Unknown Information not available 09/06/2023 When Did You Quit Smoking? 16+yearssincelastc igarette Information not available 09/06/2023 Are There Any Guns Present In Your Home? No Information not available 09/06/2023 Do You Use Insect Repellent Routinely? Yes [email or web address] Information not available 01/10/2024 Where Do You Live? SingleLevelHouse With Basement Information not available 09/06/2023 Guns Present In The Home? No [email or web address] Information not available 01/10/2024 Are You Able To Care For Yourself? Yes Information not available 01/10/2024 Are You Blind Or Do Yo Have Difficulty Seeing? No [email or web address] Information not available 01/10/2024 Are You Deaf Or Do You Have Serious Difficulty Hearing? No [email or web address] Information not available 01/10/2024 General Stress Level? Low [email or web address] Information not available 01/10/2024 Live Alone Of With Others? 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 No Information not available 09/06/2023 What Was The Date Of Your Most Recent Tobacco Screening? 04/17/2024 Information not available 04/17/2024 Have You Ever Been Counseled For Unhealthy Alcohol Use? No Information not available 01/10/2024 Do You Have Any Pets? Yes 2 Dogs [email or web address] Information not available 01/10/2024 What Is Your Relationship Status? Information not available 09/06/2023 Do You Use Your Seat Belt Or Car Seat Routinely? Yes Information not available 09/06/2023 Do You Have Smoke And Carbon Monoxide Detectors In Your Home? Yes Information not available 09/06/2023 At What Age Did You Start Smoking Tobacco? 17 Was 1ppd Information not available 09/06/2023 Are You Passively Exposed To Smoke? No Information not available 09/06/2023 Are There Any Smokers In Your House? No Information not available 09/06/2023 Do You Feel Stressed (tense, Restless, Nervous, Or Anxious, Or Unable To Sleep At Night)? [id number] Information not available 09/06/2023 Do You Use Any Illicit Or Recreational Drugs? No Information not available 09/06/2023 Do You Use Sunscreen Routinely? Yes Information not available 01/10/2024 Has Tobacco Cessation Counseling Been Provided? No N/a Information not available 09/06/2023 Have You Recently Traveled Abroad? No Information not available 09/06/2023 Do You Have Any Dietary Restrictions? No Information not available 01/10/2024 Do You Or Have You Ever Used Any Other Forms Of Tobacco Or Nicotine? No Information not available 09/06/2023 How Many Days In The Past Year Have You Consumed 4 Or More Drinks? -1 Information not available 01/10/2024 Sex: Female Functional Status Question Answer Note LastModified by Organizat ion Details LastModified Time Do you have difficulty walking or climbing stairs? No Information not available 09/06/2023 Do you have transportation difficulties? No Information not available 09/06/2023 Are you able to walk? YESWOREST Information not available 09/06/2023 Do you have difficulty doing errands alone? No Information not available 09/06/2023 Are you able to care for yourself? Yes Information not available 09/06/2023 Do you have difficulty dressing or bathing? No Information not available 09/06/2023 What is your exercise level? Moderate Information not available 09/06/2023 Mental Status Question Answer Note LastModified by Organization D etails LastModified Time Do you have difficulty concentrating, remembering or making decisions? No Information no t available 09/06/2023 Family History Relationship Description Onset Age of this Age Resolved Age Notes LastModified by Organization Details LastModified Time Mother Heart disease Not available 2022 10:34:33 Mother Malignant tumor of lung with METS to brain [email or web address] Not available 07/31/2024 10:19:16 Brother Heart disease x2 Not available 2022 10:35:04 Father Malignant tumor of lung [email or web address] Not available 07/31 10:19:16 Medical History Condition Response NERVE DISEASE N BLINDNESS N RHEUMATIC FEVER N KIDNEY STONES N BLADDER PROBLEMS N MRSA N OTHER # 1 N POLIO N LUNG DISEASE/DISORDER N HISTORY OF DRUG ABUSE N RADIATION / CHEMOTHERAPY N COPD N Other # 2 N BLOOD DISEASES Y EAR OR HEARING PROBLEMS N MUMPS N SHINGLES N DEPRESSION (INCLUDING POST ) N BOWEL PROBLEMS N FAILED BACK SYNDROME N STROKE/TIA N ULCERS N BENIGN PROSTATIC HYPERPLASIA N MEASLES N HYPOTENSION N MYOCARDIAL INFARCTION N OBESITY N GERD/NAUSEA N ANEURYSM N URINARY/BLADDER/KIDNEY PROBLEMS N CORONARY ARTERY DISEASE (CAD) N Do you have Advance directive? N ADDICTION CONCERNS N Impotence N ENDOMETRIOSIS N USE OF BLOOD THINNERS N SKIN PROBLEMS N GASTROINTESTINAL DISORDER N PERIPHERAL VASCULAR DISEASE N MUSCLE,JOINT OR BONE PROBLEMS N GASTROINTESTINAL BLEEDING N BLOOD CLOTS N ASTHMA N CATARACTS N Abdominal Pain N ERECTILE DYSFUNCTION N ARTERIAL INSUFFICIENCY N VARICOSITIES N GI PROBLEMS N Low Testosterone N INFERTILITY N AIDS/HIV N CHEMOTHERAPY / RADIATION N LIVER DISEASE N MALE HYPOGONADISM N HYPERTENSION N Deficiency N TOURETTE'S N ANXIETY DISORDER N BLOOD TRANSFUSION N ANEMIA/BLOOD DISORDER N CHRONIC EAR INFECTIONS N TUBERCULOSIS N GLAUCOMA N FOOT PROBLEM N DIVERTICULITIS N SLEEP APNEA N CHICKENPOX N ALLERGIES/HAYFEVER N BACK INJECTIONS N INFECTIOUS DISEASE N PROSTATE N HEART ARRHYTHMIA N ESRD N INSOMNIA N HIGH CHOLESTEROL / HYPERLIPIDEMIA Y EYE PROBLEMS N HYPERTHYROIDISM N PVD N EDEMA N CHRONIC PAIN SYNDROME N HYPOTHYROIDISM Y CAROTID BLOCKAGE N CONSTIPATION N BACK / NECK PROBLEMS N ATHEROSCLEROSIS N BREAST PROBLEMS N DIALYSIS N POLYCYSTIC OVARIES N ECZEMA N OSTEOPOROSIS Y ARTHRITIS N APPENDICITIS N DIABETES, TYPE N BAD TEETH N VON WILLIBRAND'S DISEASE N ENT N HEARTBURN / REFLUX N GI N AUTISM SPECTRUM DISORDER (ASD) N POST LAMINECTOMY SYNDROME N HEPATITIS / LIVER DISEASE N GOUT N SLEEP DISORDER N ALZHEIMER'S DISEASE N Brain Problems N DEMENTIA N HERPES N SEIZURES/EPILEPSY N HEADACHES/MIGRAINES N VASCULAR DISEASE N PACEMAKER N DIZZINESS N HEART DISEASE/HEART PROBLEMS N KIDNEY DISEASE N MULTIPLE SCLEROSIS N NEUROPSYCHOLOGICAL N CANCER: SPECIFY N CARDIAC ARRHYTHMIA N ATRIAL FIBRILLATION N Gall Stones N PULMONARY EMBOLISM N AUTOIMMUNE DISEASE N Gynecological History Statement/Question Response Menses Monthly N Abnormal Pap N Date of Last Pap 11/12/2020 Date of Last Mammogram 10/24/2020 Most Recent Bone Density 03/19/2021 Obstetrics History GPAL:G 0 P 0 0 0 0 Immunizations Vaccine Type Date Status Note Provider Nam e and Address Organization Details Recorded Time SARS-COV-2 (COVID-19) vaccine, UNSPECIFIED 1 completed Not Available [facility] 11/18/2022 06:07:43 SARS-COV-2 (COVID-19) vaccine, UNSPECIFIED 1 completed Not Available [facility] 11/18/2022 06:07:43 Influenza, split virus, quadrivalent, preservative 9 completed Not Available [facility] 11/18/2022 06:07:44 MMR 9 completed Not Available [facility] 11/18/2022 06:07:44 COVID-19 Non-US Vaccine, Product Unknown 1 completed Not Available [facility] 11/18/2022 06:07:44 Influenza, split virus, quadrivalent, preservative 1 completed Not Available [facility] 11/18/2022 06:07:44 Influenza, split virus, quadrivalent, preservative 0 completed Not Available [facility] 11/18/2022 06:07:44 Pneumococcal conjugate PCV 13 7 completed Not Available [facility] 11/18/2022 06:07:44 influenza, unspecified formulation 7 completed Not Available [facility] 11/18/2022 06:07:44 zoster, unspecified formulation 7 completed Not Available [facility] 11/18/2022 06:07:44 Influenza, split virus, trivalent, preservative 4 completed Not Available [facility] 11/18/2022 06:07:44 Past Encounters Encounter ID Performer Location Encounter Start Date Encounter Closed Date Diagnosis/Indication Diagnosis SNOMED-CT Code Diagnosis ICD10 Code Diagnosis Note [id number] [facility] [address] [place] [address] [place] [address] 03/17/2021 00:00:00 03/17/2021 15:57:01 [id number] [facility] [address] [place] [address] [place] [address] 07/02/2021 00:00:00 07/14/2021 15:46:06 [id number] Fam stuart MD [facility] Internal [address] [place] [address] 09/06/2023 10:18:31 09/06/2023 11:45:05 Screening - NAD 469831982 Z13.9 C-scope:Dr Villanueva on 12/09/11, next in 7 years11/28: C-scope: Dr Reyes next in 5 years Mammogram: 11/24/16, negativeMa mmogram: 11/05/17: NegativeMa mmogram: 11/07/18: NegativeMa mmogram: 10/23/2019 : NegativeMa mmogram: 10/24/2020 : NegOrdered PAP: Sees Dr Lyudmila Moses s/p PAP DEXA: 01/22/17: OPDEXA 02/20/19: OPDEXA: 03/19/2021 : OPOn Evenity UTD on flu shotUTD on PCV #13 09/07/17, #23 at age 65yearsUTD on zoster 06/18/17UT D Tdap,, attacked by a dog in 2013UTD on COVID 19 vaccineCan do shingrix vaccineCan do RSV vaccine RTC in 4 monthsDo labs todayER if worseshe did verbalize her understand ing of the above Hypothyroidism 62450097 E03.9 On synthroid 75mcgs dailycheck labs Hyperlipidemia 02896478 E78.5 On ASAOn simvastati n 20mg daily Get labs Osteoporosis 43979755 M8 1.0 On evinityDEX A 03/2023: OP done in [place] Leukopenia 68871092 D72. 819 Repeat the CBC againNeeds to see hematology Screening mammography 24 153688 Z12.31 Gynecologi c examination 81268193 Z01.419 Screening for malignant neoplasm of colon 757066861 Z12.11 History of polyp of colon 130830302 Z86.[id number] [facility] [address] [facility] [place] [address] 01/10/2024 09:31:13 01/10/2024 10:32:20 Screening - NAD 858955117 Z13.9 C-scope:Dr Villanueva on 12/09/11, next in 7 years11/28: C-scope: Dr Reyes next in 5 years Mammogram: 11/24/16, negativeMa mmogram: 11/05/17: NegativeMa mmogram: 11/07/18: NegativeMa mmogram: 10/23/2019 : NegativeMa mmogram: 10/24/2020 : NegOrdered PAP: Sees Dr Lyudmila Moses s/p PAP DEXA: 01/22/17: OPDEXA 02/20/19: OPDEXA: 03/19/2021 : OPOn EvenityDEX A: 04/19/2023 : OP UTD on flu shotUTD on PCV #13 09/07/17, #23 at age 65yearsUTD on zoster 06/18/17UT D Tdap,, attacked by a dog in 2013UTD on COVID 19 vaccineCan do shingrix vaccineUTD on RSV vaccine RTC in 4 monthsDo labs todayER if worseshe did verbalize her understand ing of the above Hypothyroidism 15786087 E03.9 On synthroid 75mcgs dailycheck labs Hyperlipidemia 87591845 E78.5 On ASAOn simvastati n 20mg daily Get labs Osteoporosis 29378790 M8 1.0 On evinityDEX A 03/2023: OP done in [place] Leukopenia 28072046 D72. 819 Repeat the CBC again Needs to see hematology Screening mammography 24 123474 Z12.31 Gynecologi c examination 59503264 Z01.419 History of polyp of colon 526557892 Z86.010 Increased liver function 30147419 R94.5 Adult heal th examination 446628522 Z00.00 Screening for disorder 579080380 Z13.9 [id number] Fam stuart MD [facility] [place] [facility] [address] [facility] , [facility] [place] [facility] [place] [address] 04/17/2024 09:39:17 04/17/2024 10:40:26 Hypothyroidism 72703702 E03.9 On synthroid 75mcgs dailycheck labs Screening - NAD 37351429 3 Z13.9 C-scope:Dr Villanueva on 12/09/11, next in 7 years11/28: C-scope: Dr Reyes next in 5 years Mammogram: 11/24/16, negativeMa mmogram: 11/05/17: NegativeMa mmogram: 11/07/18: NegativeMa mmogram: 10/23/2019 : NegativeMa mmogram: 10/24/2020 : NegMammogr am: 01/24/2024 : Neg PAP: Sees Dr Lyudmila Moses s/p PAP DEXA: 01/22/17: OPDEXA 02/20/19: OPDEXA: 03/19/2021 : OPOn EvenityDEX A: 04/19/2023 : OP UTD on flu shotUTD on PCV #13 09/07/17, #23 at age 65yearsUTD on zoster 06/18/17UT D Tdap,, attacked by a dog in 2013UTD on COVID 19 vaccineCan do shingrix vaccineUTD on RSV vaccine RTC in 4 monthsDo labs todayER if worseshe did verbalize her understand ing of the above Hyperlipidemia 20783524 E78.5 On ASAOn simvastati n 20mg daily Get labs Osteoporosis 35751226 M8 1.0 On evinityDEX A 03/2023: OP done in [place] Leukopenia 31560763 D72. 819 Repeat the CBC again May need to see hematology Gynecologi c examination 18832395 Z01.419 History of polyp of colon 766272645 Z86.010 Increased liver function 35427721 R94.5 US liver 01/12/2024 : NegHep panel 04/10/2024 : NegLFTs 04/10/2024 : Neg [id number] Fam stuart MD [facility] [address] [place] [address] 07/31/2024 10:16:56 07/31/2024 11:39:58 Hypothyroidism 79402512 E03.9 On synthroid 75mcgs [facility] labs Screening - NAD 15651165 3 Z13.9 C-scope:Dr Villanueva on 12/09/11, next in 7 years11/28: C-scope: Dr Reyes next in 5 years10/27: Dr Morales, next in 5 years Mammogram: 11/24/16, negativeMa mmogram: 11/05/17: NegativeMa mmogram: 11/07/18: NegativeMa mmogram: 10/23/2019 : NegativeMa mmogram: 10/24/2020 : NegMammogr am: 01/24/2024 : Neg PAP: Sees Dr Lyudmila Moses s/p PAP DEXA: 01/22/17: OPDEXA 02/20/19: OPDEXA: 03/19/2021 : OPOn EvenityDEX A: 04/19/2023 : OP, on [place] UTD on flu shotUTD on PCV #13 09/07/17, #23 at age 65yearsUTD on zoster 06/18/17UT D Tdap,, attacked by a dog in 2013UTD on COVID 19 vaccineCan do shingrix vaccineUTD on RSV vaccine RTC in 1 monthDo labs todayER if worseshe did verbalize her understand ing of the above Hyperlipidemia 45844382 E78.5 On ASAOn simvastati n 20mg daily Get labs Osteoporosis 49616477 M8 1.0 On evinityDEX A 03/2023: OP done in [place] Leukopenia 39550385 D72. 819 Repeat the CBC again May need to see hematology Gynecologi c examination 94333439 Z01.419 Increased liver function 68741467 R94.5 US liver 01/12/2024 : NegHep panel 04/10/2024 : NegLFTs 04/10/2024 : Neg US liver 07/24/2024 : Dr Fishman COVID-19 125444763 U07.1 Addendum: 06/18/2024 :Called as she tested positive for COVID 19Sent for paxlovidDo es well now Health Concerns Section Related Observation LastModified by Organization Detai ls LastModified Time None Recorded Concern Status LastModified by Organization Details LastModified Time None Recorded Advance Directives Directive N: Payers Encounter Date Sequence Insurance Name Policy Number Policy Johnson Covered Member ID Johnson Member ID Guarantor Name 09/06/2023 1 [place] Jessicatimoteo Phillips [id number] Jessicatimoteo Phillips 09/06/2023 2 [employer] OPTIONS (MEDICARE SUPPLEMENT) PLAN G Jessica Edgar Phillips [id number] Jessica Hernández Alan 01/10/2024 1 [place] Jessicatimoteo Iniguezierslyhn [id number] Jessica Phillips 01/10/2024 2 [employer] OPTIONS (MEDICARE SUPPLEMENT) PLAN G Jessica Edgar Inigueziermarina [id number] Jessica Edgar Alan 04/17/2024 1 [place] Jessicatimoteo Iniguezierslyhn [id number] Jessica Phillips 04/17/2024 2 [employer] OPTIONS (MEDICARE SUPPLEMENT) PLAN G Jessica Phillips [id number] Jessica Phillips 07/31/2024 1 [place] Jessica Phillips [id number] Jessica Phillips 07/31/2024 2 [employer] OPTIONS (MEDICARE SUPPLEMENT) PLAN G Jessica Phillips [id number] Jessica Phillips Notes Date Note Type Note Provider Name and Address Organization Details Recorded Time 09/06/2023 text/html 11/01/17Here to establish carePMD Dr Rocha Hx:HLDOsteoporosis Reviewed social family and surgical historyHere to discuss above and also get labs, she feels that she is doing well at this timeOV 01/10/18:ACV:She states that he is having URI sxOngoing since about a weekC/o sinus congestion and a coughNon productive, no blood in sputumNo chest pain or fevers or chillsNo N/V or diarrheaNo abd painShe would also like to check her TSH and FT4 levelsOV 02/21/18:Here for her routine apt, and want to discuss why she bruisesShe did do the labs on 01/10/18 and is here to review these OV 09/21/18:Here for her routine aptHere with her and is doing wellShe did do the labs and is here to review these done on 08/15/18OV 03/29/19:Here for her routine aptFeels really wellDid do the labsOV 09/25/2019:Here for her routine aptShe is here with her , she feels really Sabashe did do the labs OV 03/25/2020:Here for her routine aptShe is doing very well, and she did do the labsShe is planning a trip to [place] in Jun 2020OV 09/23/2019:Here for her routine aptShe is here with her husbandShe did do the labsShe feels very well todayOV 03/17/2021:Here for her routine aptShe feels Sabashe did do the labsIs here with her husbandThey [place]:Here for her routine aptShe is doing well, she is here with her OV 09/06/2023: Here to re-establish care, she is here with her , no new labs Fam Ryan MD [address] [facility], [facility] [address], [place], [address], [place] [facility] 09/06/2023 15:28:34 01/10/2024 text/html 11/01/17Here to establish carePMD Dr Rocha Hx:HLDOsteoporosis Reviewed social family and surgical historyHere to discuss above and also get labs, she feels that she is doing well at this timeOV 01/10/18:ACV:She states that he is having URI sxOngoing since about a weekC/o sinus congestion and a coughNon productive, no blood in sputumNo chest pain or fevers or chillsNo N/V or diarrheaNo abd painShe would also like to check her TSH and FT4 levelsOV 02/21/18:Here for her routine apt, and want to discuss why she bruisesShe did do the labs on 01/10/18 and is here to review these OV 09/21/18:Here for her routine aptHere with her and is doing wellShe did do the labs and is here to review these done on 08/15/18OV 03/29/19:Here for her routine aptFeels really wellDid do the labsOV 09/25/2019:Here for her routine aptShe is here with her , she feels really wellShe did do the labs OV 03/25/2020:Here for her routine aptShe is doing very well, and she did do the labsShe is planning a trip to [place] in Jun 2020OV 09/23/2019:Here for her routine aptShe is here with her husbandShe did do the labsShe feels very well todayOV 03/17/2021:Here for her routine aptShe feels wellShe did do the labsIs here with her husbandThey [place]:Here for her routine aptShe is doing well, she is here with her OV 09/06/2023: Here to re-establish care, she is here with her , no new labs OV 01/10/2024: Here for her f/u apt, she is doing well, here with her , she is to get her MWV also Fam Ryan MD [address] [facility], [facility] [address], [place], [address], [place] [facility] 01/10/2024 16:53:59 04/17/2024 text/html 11/01/17Here to establish carePMD Dr Rocha Hx:HLDOsteoporosis Reviewed social family and surgical historyHere to discuss above and also get labs, she feels that she is doing well at this timeOV 01/10/18:ACV:She states that he is having URI sxOngoing since about a weekC/o sinus congestion and a coughNon productive, no blood in sputumNo chest pain or fevers or chillsNo N/V or diarrheaNo abd painShe would also like to check her TSH and FT4 levelsOV 02/21/18:Here for her routine apt, and want to discuss why she bruisesShe did do the labs on 01/10/18 and is here to review these OV 09/21/18:Here for her routine aptHere with her and is doing wellShe did do the labs and is here to review these done on 08/15/18OV 03/29/19:Here for her routine aptFeels really wellDid do the labsOV 09/25/2019:Here for her routine aptShe is here with her , she feels really wellShe did do the labs OV 03/25/2020:Here for her routine aptShe is doing very well, and she did do the labsShe is planning a trip to [place] in Jun 2020OV 09/23/2019:Here for her routine aptShe is here with her husbandShe did do the labsShe feels very well todayOV 03/17/2021:Here for her routine aptShe feels wellShe did do the labsIs here with her husbandThey are planning [place] 07/02/2021:Here for her routine aptShe is doing well, she is here with her OV 09/06/2023: Here to re-establish care, she is here with her , no new labs OV 01/10/2024: Here for her f/u apt, she is doing well, here with her , she is to get her MWV also OV 04/17/2024: Here for her f/u apt with her , is doing well today Fam Ryan MD [address], [address], [place], [address], [place] [facility] 04/17/2024 14:08:13 07/31/2024 text/html 11/01/17Here to establish carePMD Dr Rocha Hx:HLDOsteoporosis Reviewed social family and surgical historyHere to discuss above and also get labs, she feels that she is doing well at this timeOV 01/10/18:ACV:She states that he is having URI sxOngoing since about a weekC/o sinus congestion and a coughNon productive, no blood in sputumNo chest pain or fevers or chillsNo N/V or diarrheaNo abd painShe would also like to check her TSH and FT4 levelsOV 02/21/18:Here for her routine apt, and want to discuss why she bruisesShe did do the labs on 01/10/18 and is here to review these OV 09/21/18:Here for her routine aptHere with her and is doing Sabashe did do the labs and is here to review these done on 08/15/18OV 03/29/19:Here for her routine aptFeels really wellDid do the labsOV 09/25/2019:Here for her routine aptShe is here with her , she feels really Sabashe did do the labs OV 03/25/2020:Here for her routine aptShe is doing very well, and she did do the labsShe is planning a trip to [place] in Jun 2020OV 09/23/2019:Here for her routine aptShe is here with her husbandShe did do the labsShe feels very well todayOV 03/17/2021:Here for her routine aptShe feels Sabashe did do the labsIs here with her husbandThey are planning [place] 07/[place]:Here for her routine aptShe is doing well, she is here with her OV 09/06/2023: Here to re-establish care, she is here with her , no new labs OV 01/10/2024: Here for her f/u apt, she is doing well, here with her , she is to get her MWV also OV 04/17/2024: Here for her f/u apt with her , is doing well today OV 07/31/2024: Here for her f/u apt, she is here with her , she is doing well today Fam Ryan MD [address] [place] [address], [address], [place], [address], [place] [facility] 07/31/2024 11:39:06 OBGyn Episode No OBEpisode recorded.
[2024-11-24 10:28] LABS: Anion Gap 9 mmol/L (4-12); Blood Urea Nitrogen 14 mg/dL (7-17); Calcium 9.7 mg/dL (8.4-10.2); Carbon Dioxide 28 mmol/L (22-30); Chloride 98 mmol/L (98-107); Estimated Glomerular Filt Rate > 60; Glucose 99 mg/dL (65-110); Potassium 4.7 mmol/L (3.4-5.0); Sodium 135 mmol/L (137-145)
== END 2024-11-24 08:33 | disposition home or self-care (01) ==
LOC: ANHLAB 08:33
PROVIDERS: PCP Internal Medicine; Visit Provider Internal Medicine Hematology & Oncology
DX: D64.9 Anemia, unspecified (principal)
CPT/HCPCS: 36415; 80048; 85025